=== PATIENT | female | born 1985 | race Caucasian/White ===

== ENCOUNTER → 2019-08-01 12:02 | Outpatient (BNVA) | payer BC, SELFPAY | PROVIDERS: Family Provider Nurse Practitioner Family; PCP Family Medicine; Visit Provider Nurse Practitioner Family | DX: J02.9 Acute pharyngitis, unspecified (principal); N30.01 Acute cystitis with hematuria | CPT/HCPCS: 36415; 81001; 87086 ==

== ENCOUNTER 2019-12-12 08:37 | Outpatient (CLI) | payer BC, SELFPAY ==
--- NOTE | 2019-12-12 08:45 | XR_ITS ---
WS: [id number] KUB, 12/12/2019 Clinical Data: Stone Comparison: KUB, 06/07/2019. Findings: The left renal calcifications are noted and have not changed. The right kidney shows multiple punctat e calcifications. The bladder is full. There is a large amount of fecal material in the colon. No abn ormal pelvic calcifications are noted. XR/XR KUB [id number] Impression: 1. 0.8 cm cluster of left renal calcifications unchanged. 2. Punctate right renal calcifications.
== END 2019-12-12 08:38 | disposition home or self-care (01) ==
PROVIDERS: Family Provider Nurse Practitioner Family; PCP Family Medicine; Visit Provider Urology
DX: N20.0 Calculus of kidney (principal)
CPT/HCPCS: 74018; 81001

== ENCOUNTER 2020-04-03 16:08 | Outpatient (CLI) | payer BC, SELFPAY ==
--- NOTE | 2020-04-03 | XR_ITS ---
WS: [id number] KUB, 04/03/2020 Clinical Data: POLYCYSTIC KIDNEY DISEASE Comparison: KUB, 12/12/2019. Findings: The bilateral renal calcifications remain unchanged. The left renal calcifications are clustered in m easure approximately 0.9 cm. The inferior aspects of both kidneys are obscured by overlying bowel gas . No pelvic calcifications are seen. There is no evidence of any bowel dilatation or obstruction. XR/XR KUB [id number] Impression: No change in bilateral renal calcifications.
[2020-04-03 16:51] LABS: Basophils % 0.4 %; Hematocrit 43.5 % (37.0-47.0); Lymphocytes % 36.7 %; Mean Corpuscular HGB Conc 32.2 g/dL (30.0-36.0); Mean Corpuscular Hemoglobin 30.9 pg (28.0-34.0); Mean Platelet Volume 11.7 fL (7.4-10.4); Monocytes # 0.4 10^3/uL (0.2-0.9); Monocytes % 14.2 %; Neutrophils % 48.7 %; Nucleated Red Blood Cells % 0 %; Platelet Count 105 10^3/cmm (130-400); Red Blood Count 4.53 10^6/uL (4.1-5.3); White Blood Count 2.7 10^3/uL (4.0-10.0)
[2020-04-03 17:10] LABS: Bilirubin Urine Neg (Negative); Blood Urine Neg (Negative); Glucose Urine UA Norm (Normal); Ketones Urine Negative (Negative); Leukocyte Esterase Urine Negative (Negative); Nitrate Urine Negative (Negative); Protein Urine Neg (Negative); Specific Gravity, Urine 1.015 (1.005-1.030); Urine Appearance Clear (CLEAR); Urine Color Yellow (Yellow); Urobilinogen Urine Norm (Negative); pH Urine 7 (5-7)
[2020-04-03 17:18] LABS: Estmated Average Glucose 108; Hemoglobin A1C 5.4 % (4.0-6.0)
[2020-04-03 17:25] LABS: Alanine Aminotransferase 10 U/L (0-33); Albumin Level 4.7 g/dL (3.5-5.2); Alkaline Phosphatase 58 IU/L (35-105); Anion Gap 14.9 (5-19); Aspartate Amino Transferase 17 U/L (0-32); Blood Urea Nitrogen 17 mg/dL (6-20); Calcium 9.2 mg/dL (8.5-10.5); Carbon Dioxide 29 mmol/L (22-29); Chloride 102 mmol/L (98-107); Globulin 2.7 g/dL (1.3-4.6); Glomerular Filtration Rate 96.4 mL/min (90-130); Glucose 94 mg/dL (65-115); Iron 39 ug/dL (37-145); Osmolality Calculated 295 mOsm/kg (285-295); Potassium 3.9 mmol/L (3.5-5.1); Sodium 142 mmol/L (136-145); Thyroid Stimulating Hormone 1.98 uIU/mL (0.27-4.20); Total Bilirubin 0.3 mg/dL (0.15-1.2); Total Protein 7.4 g/dL (6.6-8.7); Uric Acid 4.2 mg/dL (2.4-5.7); Vitamin B12 419 pg/mL (232-1245)
[2020-04-03 17:42] LABS: Add Urine Culture? No; Bacteria Urine 1+ /hpf; Mucus Urine TRACE /hpf; RBC Urine 0-4 /hpf (0-2)
[2020-04-09 17:26] LABS: Methylmalonic Acid 171 nmol/L (87-318)
== END 2020-04-03 16:09 | disposition home or self-care (01) ==
LOC: LAB 16:13
PROVIDERS: PCP Family Medicine; Visit Provider Nurse Practitioner Family
DX: R68.89 Other general symptoms and signs (principal); R53.83 Other fatigue; D64.9 Anemia, unspecified; Z79.899 Other long term (current) drug therapy; E53.8 Deficiency of other specified B group vitamins; N30.01 Acute cystitis with hematuria; Q61.3 Polycystic kidney, unspecified
CPT/HCPCS: 74018; 80053; 80500; 81001; 82607; 83036; 83540; 83921; 84443; 84550; 85025; 86308

== ENCOUNTER → 2020-08-27 00:01 | Outpatient (BNVA) | payer OTHER, SELFPAY | PROVIDERS: PCP Family Medicine; Visit Provider Internal Medicine Nephrology | DX: Q61.2 Polycystic kidney, adult type (principal) | CPT/HCPCS: 80069; 82043; 82306; 85025 ==

== ENCOUNTER → 2021-05-01 11:32 | Outpatient (BNVA) | payer OTHER, SELFPAY | PROVIDERS: PCP Family Medicine; Visit Provider Nurse Practitioner Family | DX: N30.01 Acute cystitis with hematuria (principal) | CPT/HCPCS: 81003; 87086 ==

== ENCOUNTER 2021-05-06 14:05 | Outpatient (CLI) | payer OTHER, SELFPAY ==
--- NOTE | 2021-05-06 14:12 | XR_ITS ---
WS: [id number] KUB, AP view, 05/06/2021 Clinical Data: N20.0 - Calculus of kidney Comparison: KUB, 04/03/2020. Findings: The left renal calcification measures 1.0 cm and has not changed. The possible right renal calcificat ion is obscured by fecal material and gas. The bladder is full. No pelvic calcifications are seen. XR/XR KUB [id number] Impression: 1. No change in left renal calcification. 2. Right renal calcification may be obscured by fecal material.
== END 2021-05-06 14:06 | disposition home or self-care (01) ==
LOC: RAD 14:11
PROVIDERS: PCP Family Medicine; Visit Provider Nurse Practitioner Family
DX: N20.0 Calculus of kidney (principal); Q61.3 Polycystic kidney, unspecified
CPT/HCPCS: 74018; 82043; 88112

== ENCOUNTER → 2021-08-10 10:28 | Outpatient (BNVA) | payer OTHER, SELFPAY | PROVIDERS: PCP Family Medicine; Visit Provider Nurse Practitioner Family | DX: Q61.3 Polycystic kidney, unspecified (principal) | CPT/HCPCS: 80069 ==

== ENCOUNTER 2022-01-13 13:30 | Outpatient (CLI) | payer OTHER, SELFPAY ==
[2022-01-13 15:32] LABS: Cortisol Random 8.72 ug/dL (2.47-19.5)
[2022-01-13 15:56] LABS: 25 Hydroxy Vitamin D 76 ng/mL (30-100); Ferritin 26 ng/mL (15-150); Homocysteine 9.55; Iron 86 ug/dL (37-145); Thyroid Stimulating Hormone 0.88 uIU/mL (0.27-4.20); Vitamin B12 783 pg/mL (232-1245)
[2022-01-13 15:59] LABS: Folate Level 13.4 ng/mL (4.8-37.3)
[2022-01-13 16:48] LABS: Free T4 Free Thyroxine 1.11 ng/dL (0.82-1.77); T3 Free 2.6 PG/ML (2.0-4.4)
[2022-01-15 10:13] LABS: Dehydroepiandrosterone Sulfate 129 mcg/dL (19-237)
[2022-01-15 11:36] LABS: Anti-Double Strand DNA AB 10 IU/mL; Jo-1 Antibody <1.0 NEG AI (<1.0 NEG); SM/RNP Antibodies <1.0 NEG AI (<1.0 NEG); SS-B/LA IGG <1.0 NEG AI (<1.0 NEG); Scleroderma Ab(Scl-70) Ab <1.0 NEG AI (<1.0 NEG); Ss-A/Ro Igg <1.0 NEG AI (<1.0 NEG)
[2022-01-15 13:29] LABS: Thyroglobulin AB <1 IU/mL (< or = 1); Thyroid Peroxidase Antobodies 1 IU/mL (<9)
== END 2022-01-13 13:31 | disposition home or self-care (01) ==
LOC: LAB 13:38
PROVIDERS: PCP Family Medicine; Visit Provider Family Medicine
DX: E53.9 Vitamin B deficiency, unspecified (principal); E55.9 Vitamin D deficiency, unspecified; R53.83 Other fatigue; R10.84 Generalized abdominal pain; R14.0 Abdominal distension (gaseous); R14.1 Gas pain; Q61.3 Polycystic kidney, unspecified
CPT/HCPCS: 82306; 82533; 82607; 82627; 82728; 82746; 83090; 83540; 84432; 84439; 84443; 84481; 86140; 86225; 86235; 86376; 86800

== ENCOUNTER → 2022-05-13 14:43 | Outpatient (BNVA) | payer OTHER, SELFPAY | PROVIDERS: PCP Family Medicine; Visit Provider Nurse Practitioner | DX: R52 Pain, unspecified (principal); J10.1 Influenza due to other identified influenza virus with other respiratory manifestations; J11.1 Influenza due to unidentified influenza virus with other respiratory manifestations | CPT/HCPCS: 87400 ==

== ENCOUNTER → 2025-02-26 11:35 | Outpatient (BNVA) | payer OTHER, SELFPAY | PROVIDERS: PCP Nurse Practitioner Family; Visit Provider Nurse Practitioner Family | DX: N39.0 Urinary tract infection, site not specified (principal) | CPT/HCPCS: 81003; 87086 ==

== ENCOUNTER 2025-02-27 14:18 | Inpatient (IN) | payer OTHER, SELFPAY ==
[2025-02-27] VITALS (9 sets, daily range): BP systolic 93–123; BP diastolic 53–69; PULSE 59–105; RESP 16–20; TEMP 36.9–38.2; O2SAT 96–99; BMI 17.9
--- OUTSIDE RECORDS SUMMARY | 2025-02-27 14:24 | XMS_ITS | Encounter Summary ---
Author Organization [facility] Address [address] [place] [address] Care Team Providers Care Food And Beverage Assistant Name Role Phone Rene Worley MD Primary Care Provider [phone] [phone] Reason for Referral * Radiology Services (Routine) - Closed Specialty Diagnoses / Procedures Referred By Contac t Referred To Contact Radiology Diagnoses Breast pain Breast implant status Procedures MAMMO DIAG BILAT 3D RAMO W OR WO CAD CHG DIAGNOSTIC MAMMOGRAPHY COMPUTER-AIDED DETCJ BI CHG DIGITAL BREAST TOMOSYNTHESIS BILATERAL Rico Mckeon, ZONIA [address] [address] Phone: tel: fax: [facility] [address] [facility] [address] [place] [address] Phone: tel: fax: Referral ID Status Reason Start Date Expiration Date V isits Requested Visits Authorized [id number] Closed [facility] CTS to Schedule 08/01/2020 09/01/2021 1 1 MOTIVE STARTER 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 Encounter Details Date Type Department Care Team (Latest Contact Info) Description 08/01/2020 Ancillary Orders [facility] Pre-Registration [place] CALL TO MAKE APPOINTMENT ONLY [address] [place] [address] Rico Mckeon, HEARING HEALTH TECHNICIAN [address] [address] Breast pain; Breast implant status Social History Tobacco Use Types Packs/Day Years Used Date Smoking Tobacco: Never Smokeless Tobacco: Never Alcohol Use Standard Drinks/Week Comments No 0 (1 standard drink = 0.6 oz pur e alcohol) Comments No Sex and Gender Information Value Date Recorded Sex Assigned at Not on file 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 Gender Identity Not on file Sexual Orientation Not on file Occupation Industry Job Start Date Job End Date Not on file Not on file Not on file Not on file documented as of this encounter Plan of Treatment Not on file documented as of this encounter Results * MAMMO DIAG BILAT 3D RAMO W OR WO CAD (08/22/2020 10:42 AM AUTOMOTIVE STARTER REPAIRER) Anatomical Region Laterality Modality Breast Bilateral Mammography 08/22/2020 10:4 2 AM AUTOMOTIVE STARTER REPAIRER Narrative 08/22/2020 11:44 AM AUTOMOTIVE STARTER REPAIRER MAMMO DIAG BILAT 3D RAMO W OR WO CAD, MAMMO BREAST US BILAT LTD INDICATION FOR EXAMINATION: See Diagnosis COMPARISONS: Mammogram dated 04/26/2019, 02/22/2019, 08/06/2013. Ultrasound dated 12/20/2019, 04/26/2019, 02/22/2019. BREAST COMPOSITION: Extremely dense which lowers the sensitivity of mammography. FINDINGS: 3D MLO and CC digital tomosynthesis images were acquired and synthesized 2D images (C view) were generated. This digital mammogram was also analyzed by the Computer Aided Detection System CAD). The patient presents for evaluation of bilateral breast lumps. The overall fibroglandular pattern is stable. No suspicious mass, area of architectural distortion, or microcalcification is identified. The bilateral prepectoral implants appear stable. Bilateral breast ultrasounds were performed. Static sonographic images of each breast were obtained with Doppler interrogation. Right breast: At the palpable region of interest, 5:00 1 cm from the nipple, benign fibrocystic changes are noted including individual simple benign cysts and benign cyst clusters. These cysts measure up to 0.6 cm. The visualized implant demonstrates no gross abnormality. Left breast: At the palpable region of interest, 9:00 1 cm from the nipple, a benign cyst is present which measures 0.4 x 0.3 x 0.3 cm. An adjacent biopsy clip is present and appears unchanged in comparison to prior exams. The visualized implant demonstrates no gross abnormality; radial folds are noted. ASSESSMENT: Benign. No evidence of malignancy. BI-RADS 2. RECOMMENDATIONS: 1. Annual screening mammography. 2. Clinical correlation for bilateral breast lump/benign fibrocystic changes. The patient should follow up with her physician for further management. The patient was given a result/recommendation letter. [id number] Procedure Note Memo Martínez MD - 08/22/2020 MAMMO DIAG BILAT 3D RAMO W OR WO CAD, MAMMO BREAST US BILAT LTD INDICATION FOR EXAMINATION: See Diagnosis COMPARISONS: Mammogram dated 04/26/2019, 02/22/2019, 08/06/2013. Ultrasound dated 12/20/2019, 04/26/2019, 02/22/2019. BREAST COMPOSITION: Extremely dense which lowers the sensitivity of mammography. FINDINGS: 3D MLO and CC digital tomosynthesis images were acquired and synthesized 2D images (C view) were generated. This digital mammogram was also analyzed by the Computer Aided Detection System CAD). The patient presents for evaluation of bilateral breast lumps. The overall fibroglandular pattern is stable. No suspicious mass, area of architectural distortion, or microcalcification is identified. The bilateral prepectoral implants appear stable. Bilateral breast ultrasounds were performed. Static sonographic images of each breast were obtained with Doppler interrogation. Right breast: At the palpable region of interest, 5:00 1 cm from the nipple, benign fibrocystic changes are noted including individual simple benign cysts and benign cyst clusters. These cysts measure up to 0.6 cm. The visualized implant demonstrates no gross abnormality. Left breast: At the palpable region of interest, 9:00 1 cm from the nipple, a benign cyst is present which measures 0.4 x 0.3 x 0.3 cm. An adjacent biopsy clip is present and appears unchanged in comparison to prior exams. The visualized implant demonstrates no gross abnormality; radial folds are noted. ASSESSMENT: Benign. No evidence of malignancy. BI-RADS 2. RECOMMENDATIONS: 1. Annual screening mammography. 2. Clinical correlation for bilateral breast lump/benign fibrocystic changes. The patient should follow up with her physician for further management. The patient was given a result/recommendation letter. [id number] Dj Gross HEARING HEALTH TECHNICIAN MAMMO ORDERABLES Final Result documented in this encounter Visit Diagnoses Diagnosis Breast pain Mastodynia Breast implant status Breast pain Mastodynia Breast implant status documented in this encounter Care Teams Food And Beverage Assistant Relationship Specialty Start Date End Date Rene Worley MD [address] [phone] PCP - General Family Practice 05/31/16 documented as of this encounter
--- OUTSIDE RECORDS SUMMARY | 2025-02-27 14:24 | XMS_ITS | Encounter Summary ---
Author Organization [facility] Address [address] [place] [address] Care Team Providers Care Photographic Lithographer Name Role Phone Rene Worley MD Primary Care Provider [phone] [phone] Encounter Details Date Type Department Care Team (Late st Contact Info) Description 04/10/2019 Ancillary Orders [facility] [address] [facility] [address] [place] [address] Murtaza Mathew MD [address] [place] [address] Visit for screening mammogram Social History Tobacco Use Types Packs/Day Years Used Date Smoking Tobacco: Never Smokeless Tobacco: Never Alcohol Use Standard Drinks/Week Comments No 0 (1 standard drink = 0.6 oz pur e alcohol) Comments Unknown Sex and Gender Information Value Date Recorded Sex Assigned at Not on file Legal Sex Female 1:58 PM GENETICIST Gender Identity Not on file Sexual Orientation Not on file documented as of this encounter Plan of Treatment Not on file documented as of this encounter Results * MAMMO PRIOR STUDY (08/06/2013 2:10 PM GENETICIST) Narrative 04/10/2019 2:02 PM CDT This exam was auto finalized to allow images to be scanned to PACS. us Murtaza Mathew MD DIAGNOSTIC IMAGING ORDERABLES Final Result * MAMMO PRIOR STUDY (08/06/2013 2:05 PM GENETICIST) Narrative 04/10/2019 2:01 PM CDT This exam was auto finalized to allow images to be scanned to PACS. Murtaza Mathew MD DIAGNOSTIC IMAGING ORDERABLES Final Result documented in this encounter Visit Diagnoses Diagnosis Visit for screening mammogram Other screening mammogram Visit for screening mammogram Other screening mammogram Visit for screening mammogram Other screening mammogram documented in this encounter Care Teams Photographic Lithographer Relationship Specialty Start Date End Date Rene Worley MD [address] [facility] [address] [place] [phone] PCP - General Family Practice 05/31/16 documented as of this encounter
--- OUTSIDE RECORDS SUMMARY | 2025-02-27 14:24 | XMS_ITS | Encounter Summary ---
Author Organization [facility] Address [address] [place] [address] Care Team Providers Care Structural Biologist Name Role Phone Rene Worley MD Primary Care Provider [phone] [phone] Encounter Details Date Type Department Care Team (Latest Contact Info) Description 08/08/1998 Outpatient Historical [facility] Family Medicine- [address] [address] [place] [address] Marilu Lowery NO ADDRESS ON FILE Acute bronchitis (Primary Dx) Social History Tobacco Use Types Packs/Day Years Used Date Smoking Tobacco: Never Assessed Comments Unknown Sex and Gender Information Value Date Recorded Sex Assigned at Not on file 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 [address] [place] [address] PCP - General Family Practice 05/31/16 documented as of this encounter
--- OUTSIDE RECORDS SUMMARY | 2025-02-27 14:24 | XMS_ITS | Encounter Summary ---
Author Organization [facility] Address [address] [place] [address] Care Team Providers Care Quality Cloth Tester Name Role Phone Rene Worley MD Primary Care Provider [phone] [phone] Encounter Details Date Type Department Care Team (Latest Contact Info) Description 05/01/1999 Outpatient Historical [facility] Family Medicine [place] [address] [address] Marilu Lowery NO ADDRESS ON FILE Sprain and strain of unspecified site of elbow and forearm (Primary Dx) Social History Tobacco Use Types Packs/Day Years Used Date Smoking Tobacco: Never Assessed Comments Unknown Sex and Gender Information Value Date Recorded Sex Assigned at Not on file 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
--- OUTSIDE RECORDS SUMMARY | 2025-02-27 14:24 | XMS_ITS | Clinical Summary ---
Author Organization [facility] Address [address] [place] [address] Care Team Providers Care Dental Laboratory Assistant Name Role Phone Unavailable Primary Care Provider Unavailabl e Allergies Active Allergy Reactions Criticality Noted Date Comments Penicillins Rash Low 10/03/2023 Medications No known medications Active Problems Problem Noted Date Diagnosed Date Abnormal mammogram 10/03/2023 Assessment & Plan (10/03/2023 1:27 PM CDT): Re image in 6 months. If she changes her mind and decides she would like to have the site biopsied. Otherwise continue monthly self breast exams and yearly mammography screening. Social History Tobacco Use Types Packs/Day Years Used Date Smoking Tobacco: Never Smokeless Tobacco: Never Tobacco Cessation:Counseling Given: Not Answered Alcohol Use Standard Drinks/Week Comments Never 0 (1 standard drink = 0.6 oz pur e alcohol) PHQ-2 Answer Date Recorded PHQ-2 Score 0 10/03/2023 Comments Unknown Sex and Gender Information Value Date Recorded Sex Assigned at Not on file Legal Sex Female 12:48 PM CDT Gender Identity Not on file Sexual Orientation Not on file Last Filed Vital Signs Vital Sign Reading Time Taken Comments Blood Pressure - - Pulse - - Temperature - - Respiratory Rate - - Oxygen Saturation - - Inhaled Oxygen Concentration - - Weight 60.8 kg (134 lb) 10/03/2023 1:09 PM CDT Height 165.1 cm (5' 5 ) 10/03/2023 1:09 PM CDT Body Mass Index 22.3 10/03/2023 1:09 PM CDT Plan of Treatment Health Maintenance Due Date Last Done Comments Varicella Vaccines (1 of 2 - 13+ 2-dose series) 1999 Pap Smear 2007 Td, Tdap Vaccines Adult 02/09/2012 02/08/2002 HPV Vaccines (1 - 3-dose SCDM series) 2013 COVID-19 Vaccine ( season) 2024 02/12/2021, 01/22/2021 Annual Wellness 07/14/2024 07/14/2023, 12/02, 11/22/2019 Influenza Vaccination (#1) 2025 HIB Vaccines Completed 05/19/1988 IPV Vaccines Completed 12/13/1990, 02/01, 1986, Additional history exists MMR Vaccines Completed 12/13/1990, 12/17/1987 Hepatitis B Vaccines Completed 10/17/1998, 06/06/1998, 04/30/1998 Hepatitis A Vaccines Aged Out No long er eligible based on patient's age to complete this topic Meningococcal Vaccines Aged Out No lo nger eligible based on patient's age to complete this topic Pneumococcal Vaccine: Pediatrics (0 to 5 Years) and At-Risk Patients (6 to 49 Years) Aged Out No longer eligible based on patient's age to complete this topic RSV Mab Nirsevimab (Beyfortus) <20 months Aged Out No longer eligibl e based on patient's age to complete this topic Rotavirus Vaccines Aged Out No longer eligible based on patient's age to complete this topic [facility] [place] [place] [id number] [facility] [address] [place] [address]
--- OUTSIDE RECORDS SUMMARY | 2025-02-27 14:24 | XMS_ITS | Encounter Summary ---
Author Organization [facility] Address [address] [place] [address] Care Team Providers Care Digital Marketing Associate Name Role Phone Rene Worley MD Primary Care Provider [phone] [phone] Encounter Details Date Type Department Care Team (Latest Contact Info) Description 01/01/2004 Outpatient Historical [facility] [address] [place] [address] [facility] [address] [place] [address] Mazin Rogers MD NO ADDRESS ON FILE GANGLION OF TENDON (Primary Dx) Social History Tobacco Use Types Packs/Day Years Used Date Smoking Tobacco: Never Assessed Comments Unknown Sex and Gender Information Value Date Recorded Sex Assigned at Not on file 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
--- OUTSIDE RECORDS SUMMARY | 2025-02-27 14:24 | XMS_ITS | Encounter Summary ---
Author Organization [facility] Address [address] [place] [address] Care Team Providers Care Digital Photo Printer Name Role Phone Rene Worley MD Primary Care Provider [phone] [phone] Encounter Details Date Type Department Care Team (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
--- OUTSIDE RECORDS SUMMARY | 2025-02-27 14:24 | XMS_ITS | Encounter Summary ---
Author Organization [facility] Address [address] [place] [address] Care Team Providers Care Maintenance Shop Clerk Name Role Phone Rene Worley MD Primary Care Provider [phone] [phone] Reason for Referral * Radiology Services (Routine) - Closed Specialty Diagnoses / Procedures Referred By Contac t Referred To Contact Radiology Diagnoses Breast pain Breast implant status Procedures MAMMO BREAST US BILAT LTD Rioc Mckeon, ZONIA [address] [place] [address] Phone: tel: fax: [facility] [address] [address] Phone: tel: fax: Referral ID Status Reason Start Date Expiration Date Visits Re quested Visits Authorized [id number] Closed 08/22/2020 09/22/2021 1 1 GAGE LOAN OFFICER ORIGINATOR Encounter Details Date Type Department Care Team (Latest Contact Info) Description 08/22/2020 Ancillary Orders [facility] Pre-Registration [place] CALL TO MAKE APPOINTMENT ONLY [address] [place] [address] Rico Mckeon, ZONIA [facility] [address] [address] Breast pain; Breast implant status Social History Tobacco Use Types Packs/Day Years Used Date Smoking Tobacco: Never Smokeless Tobacco: Never Alcohol Use Standard Drinks/Week Comments No 0 (1 standard drink = 0.6 oz pur e alcohol) Comments No Sex and Gender Information Value Date Recorded Sex Assigned at Not on file Legal Sex Female 1:58 PM MORTGAGE LOAN OFFICER ORIGINATOR Gender Identity Not on file Sexual Orientation Not on file Occupation Industry Job Start Date Job End Date Not on file Not on file Not on file Not on file COVID-19 Exposure Response Date Recorded In the last month, have you been in contact with someone who was confirmed or suspected to have Coronavirus / COVID-19? No / Unsure 08/22/2020 8:37 AM MORTGAGE LOAN OFFICER ORIGINATOR documented as of this encounter Plan of Treatment Not on file documented as of this encounter Results * MAMMO BREAST US [employer] (08/22/2020 11:30 AM MORTGAGE LOAN OFFICER ORIGINATOR) Anatomical Region Laterality Modality Bilateral Ultrasound 08/22/2020 10:4 9 AM MORTGAGE LOAN OFFICER ORIGINATOR Narrative 08/22/2020 11:44 AM MORTGAGE LOAN OFFICER ORIGINATOR MAMMO DIAG BILAT 3D RAMO W OR WO CAD, MAMMO BREAST US [employer] INDICATION FOR EXAMINATION: See Diagnosis COMPARISONS: Mammogram [...] The patient was given a result/recommendation letter. [id number] Procedure Note Memo Martínez MD - 08/22/2020 [...] The patient was given a result/recommendation letter. [id number] Dj Gross DIRECTOR INDUSTRIAL RELATIONS MAMMO ORDERABLES Final Result documented in this encounter Visit Diagnoses Diagnosis Breast pain Mastodynia Breast implant status Breast pain Mastodynia Breast implant status documented in this encounter Care Teams Maintenance Shop Clerk Relationship Specialty Start Date End Date Rene Worley MD [address] [phone] PCP - General Family Practice 05/31/16 documented as of this encounter
--- OUTSIDE RECORDS SUMMARY | 2025-02-27 14:24 | XMS_ITS | Encounter Summary ---
Author Organization [facility] Address [address] [place] [address] Care Team Providers Care Spot Checker Name Role Phone Rene Worley MD Primary Care Provider [phone] [phone] Reason for Referral * Radiology Services (Routine) - Closed Specialty Diagnoses / Procedures Referred By Contac t Referred To Contact Radiology Diagnoses Abnormal mammogram Procedures MAMMO BREAST US LEFT LTD Rene Worley MD [address] [address] Phone: tel: fax: [facility] [address] [address] Phone: tel: fax: Referral ID Status Reason Start Date Expiration Date V isits Requested Visits Authorized [id number] Closed [facility] TO SCHEDULE (SGF) 10/08/2019 11/07/2020 1 1 Encounter Details Date Type Department Care Team (Late st Contact Info) Description 10/08/2019 Ancillary Orders [facility] Pre-Registration [place] CALL TO MAKE APPOINTMENT ONLY [address] [place] [address] Rene Worley MD [address] [address] Abnormal mammogram Social History Tobacco Use Types Packs/Day Years Used Date Smoking Tobacco: Never Smokeless Tobacco: Never Alcohol Use Standard Drinks/Week Comments No 0 (1 standard drink = 0.6 oz pur e alcohol) Comments Unknown Sex and Gender Information Value Date Recorded Sex Assigned at Not on file 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 No / Unsure 10/08/2019 11:16 AM CDT documented as of this encounter Plan of Treatment Not on file documented as of this encounter Results * MAMMO BREAST US LEFT LTD (12/20/2019 9:11 AM CDT) Anatomical Region Laterality Modality Left Ultrasound 12/20/2019 8:57 AM CDT Narrative 12/20/2019 1:16 PM CDT MAMMO BREAST US LEFT LTD COMPARISON: Mammogram dated 04/26/2019, 02/22/2019, 08/06/2013. Ultrasound dated 02/22/2019, 04/26/2019. INDICATION FOR EXAMINATION: Status post benign left breast biopsy. TECHNIQUE: Static sonographic images of the left breast were obtained with Doppler interrogation. FINDINGS: The visualized implant demonstrates no gross defect. At 9:00 1 cm from the nipple a benign cyst is noted which measures 0.6 x 0.3 x 0.4 cm. Adjacent to this is the biopsy clip and remnants of the previously biopsied and involuted benign cyst. No suspicious abnormality is identified. ASSESSMENT: Benign. No evidence of malignancy. BI-RADS 2. RECOMMENDATIONS: Left breast ultrasound in one year. The patient was given a result/recommendation letter. [id number] Procedure Note Memo Martínez MD - 12/20/2019 MAMMO BREAST US LEFT LTD COMPARISON: Mammogram dated 04/26/2019, 02/22/2019, 08/06/2013. Ultrasound dated 02/22/2019, 04/26/2019. INDICATION FOR EXAMINATION: Status post benign left breast biopsy. TECHNIQUE: Static sonographic images of the left breast were obtained with Doppler interrogation. FINDINGS: The visualized implant demonstrates no gross defect. At 9:00 1 cm from the nipple a benign cyst is noted which measures 0.6 x 0.3 x 0.4 cm. Adjacent to this is the biopsy clip and remnants of the previously biopsied and involuted benign cyst. No suspicious abnormality is identified. ASSESSMENT: Benign. No evidence of malignancy. BI-RADS 2. RECOMMENDATIONS: Left breast ultrasound in one year. The patient was given a result/recommendation letter. [id number] Rene Worley MD MAMMO ORDERABLES Final Re sult documented in this encounter Visit Diagnoses Diagnosis Abnormal mammogram Abnormal mammogram, unspecified Abnormal mammogram Abnormal mammogram, unspecified documented in this encounter Care Teams Spot Checker Relationship Specialty Start Date End Date Rene Worley MD [address] [facility] [address] [place] [address] PCP - General Family Practice 05/31/16 documented as of this encounter
--- OUTSIDE RECORDS SUMMARY | 2025-02-27 14:24 | XMS_ITS | Encounter Summary ---
Author Organization [facility] Address [address] [place] [address] Care Team Providers Care Parks And Recreation Worker Name Role Phone Rene Worley MD Primary Care Provider +1 [phone] Encounter Details Date Type Department Care Team (Latest Contact Info) Description 12/31/2002 Outpatient Historical [facility] Family Medicine- [address] [place] [address] Syed Manriquez MD [address] 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
--- OUTSIDE RECORDS SUMMARY | 2025-02-27 14:24 | XMS_ITS | Encounter Summary ---
Author Organization [facility] Address [address] [place] [address] Care Team Providers Care Manager Of Program Name Role Phone Rene Worley MD Primary Care Provider [phone] [phone] Encounter Details Date Type Department Care Team (Latest Contact Info) Description 10/14/1999 Outpatient Historical [facility] Family Medicine- [address] [address] [place] [address] Montez Moise DO NO ADDRESS ON FILE Viral warts, unspecified (Primary Dx) Social History Tobacco Use Types Packs/Day Years Used Date Smoking Tobacco: Never Assessed Comments Unknown Sex and Gender Information Value Date Recorded Sex Assigned at Not on file Legal Sex Female 1:58 PM 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
--- OUTSIDE RECORDS SUMMARY | 2025-02-27 14:24 | XMS_ITS | Encounter Summary ---
Author Organization [facility] Address [address] [place] [address] Care Team Providers Care Swimming Pool Cleaner Name Role Phone Rene Worley MD Primary Care Provider [phone] [phone] Encounter Details Date Type Department Care Team (Latest Contact Info) Description 09/18/2002 Outpatient Historical [facility] Family Medicine- [address] [place] [address] Syed Manriquez MD [address] [facility] 200 [place] [address] URIN TRACT INFECTION NOS (Primary Dx) Social History Tobacco Use Types Packs/Day Years Used Date Smoking Tobacco: Never Assessed Comments Unknown Sex and Gender Information Value Date Recorded Sex Assigned at Not on file Legal Sex Female 1:58 PM 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
--- OUTSIDE RECORDS SUMMARY | 2025-02-27 14:24 | XMS_ITS | Encounter Summary ---
Author Organization [facility] Address [address] [place] [address] Care Team Providers Care Field Sales Executive Name Role Phone Rene Worley MD Primary Care Provider [phone] Encounter Details Date Type Department Care Team (Latest Contact Info) Description 02/17/2004 Outpatient Historical [facility] Orthoped[facility]- [address] [place] [address] Mazin Rogers MD NO ADDRESS ON FILE GANGLION OF JOINT (Primary Dx) Social History Tobacco Use Types Packs/Day Years Used Date Smoking Tobacco: Never Assessed Comments Unknown Sex and Gender Information Value Date Recorded Sex Assigned at Not on file Legal Sex Female 1:58 PM IN HOME CAREGIVER Gender Identity Not on file Sexual Orientation Not on file documented as of this encounter Plan of Treatment Not on file documented as of this encounter Visit Diagnoses Diagnosis Ganglion of joint- Primary documented in this encounter Care Teams Field Sales Executive Relationship Specialty Start Date End Date Rene Worley MD [address] [facility] 60 [place] [address] PCP - General Family Practice 05/31/16 documented as of this encounter
--- OUTSIDE RECORDS SUMMARY | 2025-02-27 14:24 | XMS_ITS | Encounter Summary ---
Author Organization [facility] Address [address] [place] [address] Care Team Providers Care Washer Operator Name Role Phone Rene Worley MD Primary Care Provider [phone] [phone] Encounter Details Date Type Department Care Team (Latest Contact Info) Description 09/06/2003 Outpatient Historical [facility] Family Medicine- [place] [address] [place] [address] Shanta Martel MD NO ADDRESS ON FILE ACUTE PHARYNGITIS (Primary Dx) Social History Tobacco Use Types Packs/Day Years Used Date Smoking Tobacco: Never Assessed Comments Unknown Sex and Gender Information Value Date Recorded Sex Assigned at Not on file 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
--- OUTSIDE RECORDS SUMMARY | 2025-02-27 14:24 | XMS_ITS | Encounter Summary ---
Author Organization [facility] Address [address] [place] [address] Care Team Providers Care Home Help Aide Name Role Phone Rene Worley MD Primary Care Provider [phone] [phone] Encounter Details Date Type Department Care Team (Latest Contact Info) Description 09/30/1999 Outpatient Historical [facility] Family Medicine- [address] [place] [address] Montez Moise, NO ADDRESS ON FILE Other acne (Primary Dx); Viral warts, unspecified Social History Tobacco Use Types Packs/Day Years Used Date Smoking Tobacco: Never Assessed Comments Unknown Sex and Gender Information Value Date Recorded Sex Assigned at Not on file Legal Sex Female 1:58 PM FRONT END 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
--- OUTSIDE RECORDS SUMMARY | 2025-02-27 14:24 | XMS_ITS | Encounter Summary ---
Author Organization [facility] Address [address] [place] [address] Phone Care Team Providers Care Signal And Communications Maintainer Name Role Phone Rene Worley MD Primary Care Provider [phone] Encounter Details Date Type Department Care Team (Late st Contact Info) Description 06/19/2019 Orders Only [facility] [address] [place] [address] Polycystic kidney, not otherwise specified Social History Tobacco Use Types Packs/Day Years Used Date Smoking Tobacco: Never Assessed Comments Unknown Sex and Gender Information Value Date Recorded Sex Assigned at Not on file Legal Sex Female 11:40 AM EST Gender Identity Not on file Sexual Orientation Not on file documented as of this encounter Plan of Treatment Not on file documented as of this encounter Visit Diagnoses Diagnosis Polycystic kidney, not otherwise specified documented in this encounter Care Teams Signal And Communications Maintainer Relationship Specialty Start Date End Date Rene Worley MD [address] [facility] [address] [place] [address] PCP - General Family Medicine 09/26/19 documented as of this encounter
--- OUTSIDE RECORDS SUMMARY | 2025-02-27 14:24 | XMS_ITS | Encounter Summary ---
Author Organization [facility] Address [address] [place] [address] Care Team Providers Care Pickle Maker Name Role Phone Rene Worley MD Primary Care Provider [phone] [phone] Encounter Details Date Type Department Care Team (Latest Contact Info) Description 08/12/2020 Ancillary Orders [facility] Pre-Registration [place] CALL TO MAKE APPOINTMENT ONLY [address] [place] [address] Rico Mckeon, RESIDENCE LEASING AGENT [address] [address] Breast implant status; Encounter for other screening for malignant neoplasm of breast Social History Tobacco Use Types Packs/Day Years Used Date Smoking Tobacco: Never Smokeless Tobacco: Never Alcohol Use Standard Drinks/Week Comments No 0 (1 standard drink = 0.6 oz pur e alcohol) Comments No Sex and Gender Information Value Date Recorded Sex Assigned at Not on file Legal Sex Female 1:58 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
--- OUTSIDE RECORDS SUMMARY | 2025-02-27 14:24 | XMS_ITS | Clinical Summary ---
Author Organization [facility] Address [address] [place] [address] Care Team Providers Care Application Support Developer Name Role Phone Rene Worley MD Primary Care Provider [phone] [phone] Allergies Active Allergy Reactions Criticality Noted Date Comments Penicillins Rash Low 06/15/2019 Medications No known medications Active Problems Problem Noted Date Diagnosed Date Polycystic kidney disease Fibrocystic breast changes of both breasts Family History Medical History Relation Name Comments Kidney Disease Brother Kidney Disease Maternal Grandmother Kidney Disease Maternal Uncle Kidney Disease Mother Polycystic ki dney Breast Cancer Neg Hx Relation Name Status Comments Brother Maternal Grandmother Maternal Uncle Mother Social History Tobacco Use Types Packs/Day Years Used Date Smoking Tobacco: Never Smokeless Tobacco: Never Alcohol Use Standard Drinks/Week Comments No 0 (1 standard drink = 0.6 oz pur e alcohol) Comments No Sex and Gender Information Value Date Recorded Sex Assigned at Not on file Legal Sex Female 1:58 PM WIND OPERATIONS SUPERVISOR Gender Identity Not on file Sexual Orientation Not on file Occupation Industry Job Start Date Job End Date Not on file Not on file Not on file Not on file Last Filed Vital Signs Vital Sign Reading Time Taken Comments Blood Pressure 114/68 12/17/2020 3:03 PM CDT Pulse 82 06/15/2019 3:42 PM WIND OPERATIONS SUPERVISOR Temperature 37.3 C (99.2 F) 06/15/2019 3:42 PM WIND OPERATIONS SUPERVISOR Respiratory Rate 14 04/13/2019 2:09 PM CDT Oxygen Saturation 99% 06/15/2019 3:42 PM WIND OPERATIONS SUPERVISOR Inhaled Oxygen Concentration - - Weight 62.8 kg (138 lb 6.4 oz) 12/17/2020 3:03 P M CDT Height 165.1 cm (5' 5 ) 11/22/2019 8:38 AM CDT Body Mass Index 23.03 11/22/2019 8:38 AM CDT Plan of Treatment Health Maintenance Due Date Last Done Comments DTAP/TDAP/TD VACCINES (1 - Tdap) 2005 HEPATITIS B VACCINES (1 of 3 - 19+ 3-dose series) 2005 HPV VACCINES (1 - 3-dose SCDM series) 2013 PAP SMEAR 11/21/2022 11/22/2019, 11/22/2019 COVID-19 Vaccine (3 - 2023- season) 03/04/202406/2021, 01/22/2021 Preventative Visit- Commercial 07/04/2024 12/17/2020 , 11/22/2019 CERVICAL CANCER SCREENING 11/21/2024 HPV/Cotest (21-29) 11/21/2024 11/22/2019 HPV/Cotest (30-65) 11/21/2024 11/22/2019 INFLUENZA VACCINE (#1) 2025 04/13/2019 Procedures Procedure Name Priority Date/Time Associated Diagnosis Comments CERV/VAG CYTO SCREEN PAP W/HPV Routine 11/22/2019 9:23 AM CDT Screening for cervical cancer from Last 3 Months or Most Recently Relevant to Health Maintenance Results * CERV/VAG CYTO SCREEN PAP W/HPV (11/22/2019 9:23 AM CDT) PAP INTERP See Separate Results 11/29/2019 9:36 AM CDT [facility] Genital SWAB OF ENDOCERVIX / Unknown Collection / Unknown 11/22/2019 9:23 AM CDT 11/23/2019 11:49 AM CDT us Lynn Andrade MD PATHOLOGY/CYTOLOGY ORD ERABLES Final Result [facility] CLIA# [id number] [address] [place] [id number] from Last 3 Months or Most Recently Relevant to Health Maintenance Insurance [facility] Care Teams Application Support Developer Relationship Specialty Start Date End Date Rene Worley MD [address] [facility] [address] [place] [address] PCP - General Family Practice 05/31/16
--- OUTSIDE RECORDS SUMMARY | 2025-02-27 14:24 | XMS_ITS | Encounter Summary ---
Author Organization [facility] Address [address] [place] [address] Care Team Providers Care Level Vial Grinder Name Role Phone Rene Worley MD Primary Care Provider [phone] Encounter Details Date Type Department Care Team (Late st Contact Info) Description 02/19/2025 External Device Data STL ABSTRACTION Provider, Abstract NO ADDRESS ON FILE Social History Tobacco Use Types Packs/Day Years Used Date Smoking Tobacco: Never Smokeless Tobacco: Never Alcohol Use Standard Drinks/Week Comments No 0 (1 standard drink = 0.6 oz pur e alcohol) Comments No Sex and Gender Information Value Date Recorded Sex Assigned at Not on file Legal Sex Female 7:05 AM GLIDING PILOT 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
--- OUTSIDE RECORDS SUMMARY | 2025-02-27 14:24 | XMS_ITS | Clinical Summary ---
Author Organization [facility] Address [address] [place] [address] Care Team Providers Care Platform Man Name Role Phone Rene Worley MD Primary Care Provider [phone] Allergies Active Allergy Reactions Criticality Noted Date Comments Penicillins Rash Low 06/15/2019 Medications Cholecalciferol (D3 2000 PO) Take by mouth 1 (one) time each day Active cyanocobalamin (VITAMIN B-12) 100 MCG tablet Take 50 mcg by mouth 1 (one) time each day Active Active Problems Problem Noted Date Diagnosed Date Vitamin D deficiency 09/02/2020 Polycystic kidney, unspecified type Immunizations Immunization Administration Dates Next Due Pfizer SARS-COV-2 02/12/2021,01/22/2021 Family History Medical History Relation Comments Polycystic kidney disease Brother No Known Problems Father Polycystic kidney disease Maternal Grandmother Polycystic kidney disease Mother Polycystic kidney disease Mother's Brother Polycystic kidney disease Mother's Sister Relation Status Comments Brother Alive Father Alive Maternal Grandmother Mother Alive Mother's Brother Mother's Sister Social History Tobacco Use Types Packs/Day Years Used Date Smoking Tobacco: Never Smokeless Tobacco: Never Alcohol Use Standard Drinks/Week Comments Never 0 (1 standard drink = 0.6 oz pur e alcohol) AUDIT-C Answer Date Recorded Q1: How often do you have a drink containing alc ohol? Never 09/26/2019 Average Number of Drinks Not on file 020 Frequency of Binge Drinking Not on file 09/02 Comments Unknown Sex and Gender Information Value Date Recorded Sex Assigned at Not on file Legal Sex Female 11:40 AM EST Gender Identity Not on file Sexual Orientation Not on file Last Filed Vital Signs Vital Sign Reading Time Taken Comments Blood Pressure 128/70 08/27/2024 7:25 AM SOLARIS ADMINISTRATOR Pulse 69 08/27/2024 7:25 AM SOLARIS ADMINISTRATOR Temperature 36.8 C (98.3 F) 09/02/2020 2:04 PM SOLARIS ADMINISTRATOR Respiratory Rate - - Oxygen Saturation 97% 08/27/2024 7:25 AM SOLARIS ADMINISTRATOR Inhaled Oxygen Concentration - - Weight 58.3 kg (128 lb 9.6 oz) 08/27/2024 7:25 A M SOLARIS ADMINISTRATOR Height 165.1 cm (5' 5 ) 08/27/2024 7:25 AM SOLARIS ADMINISTRATOR Body Mass Index 21.4 08/27/2024 7:25 AM SOLARIS ADMINISTRATOR Plan of Treatment Health Maintenance Due Date Last Done Comments Hepatitis B Vaccine (1 of 3 - 19+ 3-dose series) 06/17 Pneumococcal Vaccine: Peds ( 0 to 5 Years) and At-Risk Patients (6 to 49 Years) (1 of 2 - PCV) 2005 Influenza Vaccine (#1) 2025 Insurance [facility] ([id number]) Care Teams Platform Man Relationship Specialty Start Date End Date Rene Worley MD [address] [facility] [address] [place] [address] PCP - General Family Medicine 09/26/19
--- OUTSIDE RECORDS SUMMARY | 2025-02-27 14:24 | XMS_ITS | Encounter Summary ---
Author Organization [facility] Address [address] [place] [address] Care Team Providers Care Microsystems Engineer Name Role Phone Rene Worley MD Primary Care Provider [phone] Encounter Details Date Type Department Care Team (Late st Contact Info) Description 05/21/2002 Outpatient Historical [facility] Dermatology- [address] [place] [address] Jesús Amaya MD [address] [place] [phone] VIRAL WARTS NOS (Primary Dx); ACNE NEC Social History Tobacco Use Types Packs/Day Years Used Date Smoking Tobacco: Never Assessed Comments Unknown Sex and Gender Information Value Date Recorded Sex Assigned at Not on file Legal Sex Female 1:58 PM PREVENTIVE MAINTENANCE COORDINATOR Gender Identity Not on file Sexual Orientation Not on file documented as of this encounter Plan of Treatment Not on file documented as of this encounter Visit Diagnoses Diagnosis Viral warts, unspecified- Primary Other acne documented in this encounter Care Teams Microsystems Engineer Relationship Specialty Start Date End Date Rene Worley MD [address] [facility] [address] [place] [address] PCP - General Family Practice 05/31/16 documented as of this encounter
--- OUTSIDE RECORDS SUMMARY | 2025-02-27 14:24 | XMS_ITS | Encounter Summary ---
Author Organization [facility] Address [address] [place] [address] Care Team Providers Care Fine Grade Operator Name Role Phone Rene Worley MD Primary Care Provider +1 [phone] Reason for Referral * Radiology Services (Routine) - Closed Specialty Diagnoses / Procedures Referred By Contac t Referred To Contact Radiology Diagnoses Abnormal mammogram Procedures MAMMO BREAST US BIOPSY LEFT MAMMO BREAST US ASPIRATION LEFT Rene Worley MD [address] [address] Phone: tel: fax: [facility] [address] [address] Phone: tel: fax: Referral ID Status Reason Start Date Expiration Date V isits Requested Visits Authorized [id number] Closed SGF MC TO SCHEDULE (SGF) 04/19/2019 05/19/2020 1 1 Encounter Details Date Type Department Care Team (Late st Contact Info) Description 04/26/2019 Ancillary Orders [facility] [address] [address] Rene Worley MD [address] [address] Abnormal mammogram Social History Tobacco Use Types Packs/Day Years Used Date Smoking Tobacco: Never Smokeless Tobacco: Never Alcohol Use Standard Drinks/Week Comments No 0 (1 standard drink = 0.6 oz pur e alcohol) Comments Unknown Sex and Gender Information Value Date Recorded Sex Assigned at Not on file 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 Left breast, 9 o'clock - 1 cm from nipple, ultrasound-guided biopsy - minute fragments of cyst wall with adjacent parenchyma with altered architecture and focal proliferative change Although no definitive atypia or malignancy is identified in the biopsy, continued observation of the area is recommended given the histologic changes and limited sample size This is a benign and concordant result. RECOMMENDATION: Recommend left breast diagnostic ultrasound in six months to ensure stability. [id number] Impressions 04/26/2019 10:54 AM CDT : Technically successful ultrasound-guided biopsy of the breast after incomplete resolution upon attempted aspiration. Final pathology is pending. [id number] Narrative 04/26/2019 10:54 AM CDT EXAM: MAMMO BREAST US BIOPSY LEFT, MAMMO POST US/STEREO GUIDED PROCEDURE LT, 04/26/2019 8:37 AM PRE-PROCEDURE DIAGNOSIS: Indeterminate left breast mass, aspiration unsuccessful POST-PROCEDURE DIAGNOSIS: Same, possible complicated cyst COMPARISON: 02/22/2019 FINDINGS: Consent: Following a thorough discussion of the risks, benefits and alternatives of the procedure written informed consent was obtained. Time out was performed. Position: The patient was placed in a supine position on the US table and a preliminary scan was obtained. The abnormality was again identified in the left breast. Preparation: The patient's skin was cleansed, and the skin and subcutaneous tissues anesthetized with 10 mL of 1% lidocaine solution. A portion of the cyst within the 9:00 axis of the left breast, 1 cm from the nipple aspirated. There was, however residual abnormal appearing tissue. Procedure: A coaxial needle was inserted into the skin. A 14-gauge Bard needle was placed through the coaxial needle into the biopsy site. Multiple core samples were obtained. A coil-shaped biopsy clip was positioned into the site. The biopsy device was removed and handheld pressure was applied. The estimated blood loss is minimal. The patient tolerated the procedure well without evidence of immediate complications. Post-procedure: A left digital mammogram in the ML and CC projections was submitted for review. This demonstrates biopsy clip in appropriate position. Procedure Note Ella Matrínez MD - 04/26/2019 EXAM: MAMMO BREAST US BIOPSY LEFT, MAMMO POST US/STEREO GUIDED PROCEDURE LT, 04/26/2019 8:37 AM PRE-PROCEDURE DIAGNOSIS: Indeterminate left breast mass, aspiration unsuccessful POST-PROCEDURE DIAGNOSIS: Same, possible complicated cyst COMPARISON: 02/22/2019 FINDINGS: Consent: Following a thorough discussion of the risks, benefits and alternatives of the procedure written informed consent was obtained. Time out was performed. Position: The patient was placed in a supine position on the US table and a preliminary scan was obtained. The abnormality was again identified in the left breast. Preparation: The patient's skin was cleansed, and the skin and subcutaneous tissues anesthetized with 10 mL of 1% lidocaine solution. A portion of the cyst within the 9:00 axis of the left breast, 1 cm from the nipple aspirated. There was, however residual abnormal appearing tissue. Procedure: A coaxial needle was inserted into the skin. A 14-gauge Bard needle was placed through the coaxial needle into the biopsy site. Multiple core samples were obtained. A coil-shaped biopsy clip was positioned into the site. The biopsy device was removed and handheld pressure was applied. The estimated blood loss is minimal. The patient tolerated the procedure well without evidence of immediate complications. Post-procedure: A left digital mammogram in the ML and CC projections was submitted for review. This demonstrates biopsy clip in appropriate position. IMPRESSION: Technically successful ultrasound-guided biopsy of the breast afterincomplete resolution upon attempted aspiration. Final pathology is pending. [id number] Rene Worley MD MAMMO ORDERABLES Edited R esult - Final documented in this encounter Visit Diagnoses Diagnosis Abnormal mammogram Abnormal mammogram, unspecified Abnormal mammogram Abnormal mammogram, unspecified documented in this encounter Care Teams Fine Grade Operator Relationship Specialty Start Date End Date Rene Worley MD [address] [facility] [address] [place] [phone] PCP - General Family Practice 05/31/16 documented as of this encounter
--- OUTSIDE RECORDS SUMMARY | 2025-02-27 14:24 | XMS_ITS | Encounter Summary ---
Author Organization [facility] Address [address] [place] [address] Care Team Providers Care District Sales Coordinator Name Role Phone Rene Worley MD Primary Care Provider [phone] [phone] Encounter Details Date Type Department Care Team (Latest Contact Info) Description 12/16/2003 Outpatient Historical [facility] Family Medicine- [address] [place] [address] Shanta Martel MD NO ADDRESS ON FILE GANGLION NOS (Primary Dx) Social History Tobacco Use Types Packs/Day Years Used Date Smoking Tobacco: Never Assessed Comments Unknown Sex and Gender Information Value Date Recorded Sex Assigned at Not on file 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
--- OUTSIDE RECORDS SUMMARY | 2025-02-27 14:24 | XMS_ITS | Encounter Summary ---
Author Organization [facility] Address [address] [place] [address] Care Team Providers Care Giving Officer Name Role Phone Rene Worley MD Primary Care Provider [phone] [phone] Encounter Details Date Type Department Care Team (Latest Contact Info) Description 03/22/2002 Outpatient Historical [facility] Family Medicine [address] [phone] Shanta Martel MD NO ADDRESS ON FILE CONTUSION OF CHEST WALL (Primary Dx) Social History Tobacco Use Types Packs/Day Years Used Date Smoking Tobacco: Never Assessed Comments Unknown Sex and Gender Information Value Date Recorded Sex Assigned at Not on file 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
--- OUTSIDE RECORDS SUMMARY | 2025-02-27 14:24 | XMS_ITS | Encounter Summary ---
Author Organization [facility] Address [address] [place] [address] Care Team Providers Care Return Checker Name Role Phone Rene Worley MD Primary Care Provider [phone] [phone] Encounter Details Date Type Department Care Team (Latest Contact Info) Description 01/13/2004 Outpatient Historical [facility] Orthopedics- 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
--- OUTSIDE RECORDS SUMMARY | 2025-02-27 14:24 | XMS_ITS | Encounter Summary ---
Author Organization [facility] Address [address] [place] [address] Care Team Providers Care Supervisor Cell Efficiency Name Role Phone Rene Worley MD Primary Care Provider [phone] [phone] Reason for Referral * Radiology Services (Routine) - Closed Specialty Diagnoses / Procedures Referred By Contac t Referred To Contact Radiology Diagnoses Breast mass, left Procedures MAMMO BREAST US LEFT LTD Rico Mckeon, TECHNICAL CUSTOMER SUPPORT SPECIALIST [address] [place] [address] Phone: tel: fax: [address] [address] Phone: tel: fax: Referral ID Status Reason Start Date Expiration Date Visits Requested Visits Authorized [id number] Closed Performing Department To Schedule (SGF) 02/12/2019 03/14/2020 1 1 * Radiology Services (Routine) - Closed Specialty Diagnoses / Procedures Referred By Contac t Referred To Contact Radiology Diagnoses Breast mass, left Procedures MAMMO DIAGNOSTIC BILATERAL W OR WO CAD Rioc Mckeon, TECHNICAL CUSTOMER SUPPORT SPECIALIST [address] [place] [address] Phone: tel: fax: [facility] [address] [place] [address] Phone: tel: fax: Referral ID Status Reason Start Date Expiration Date V isits Requested Visits Authorized [id number] Closed [facility] [place]EDU[place] 02/12/2019 03/14/2020 1 1 Encounter Details Date Type Department Care Team ([facility] Contact Info) Description 02/12/2019 Ancillary Orders [facility] Pre-Registration [place] CALL TO MAKE APPOINTMENT ONLY [address] [place] [address] Rico Mckeon, ZONIA [address] [facility] [address] [place] [address] Breast mass, left Social History Tobacco Use Types Packs/Day Years Used Date Smoking Tobacco: Never Smokeless Tobacco: Never Alcohol Use Standard Drinks/Week Comments No 0 (1 standard drink = 0.6 oz pur e alcohol) Comments Unknown Sex and Gender Information Value Date Recorded Sex Assigned at Not on file 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 This was prior to the implant placement. The exam is difficult to use for comparison as the appearance of the breast was much different. It appears that the patient has lost a great deal of weight. There are also technical differences due to the presence of the implants currently. I would recommend ultrasound-guided attempted aspiration of the two probable complicated cysts at the 9:00 position on the left. IMPRESSION: I would recommend left ultrasound-guided attempted aspiration of the two probable complicated cysts at the 9:00 position on the left. [id number] Narrative 02/22/2019 2:53 PM CDT Bilateral Diagnostic Mammogram And Left Breast Ultrasound, 02/22/2019: History: The patient is 33 years of age and she is here with a lump she feels at 9:00 anteriorly on the left. I did review the office visit note of 01/23/2019 indicating that a small mass was confirmed near the nipple at 9:00 on the left. No diagram was submitted. The patient has no family history of breast carcinoma. The patient has outside prior exams from [place] which are not yet here for comparison but they have been requested today. Bilateral craniocaudal and oblique views are obtained with standard technique and also implant displaced technique. Bilateral medial to lateral implant displaced views are obtained. Bilateral implants are noted. The breast tissue is extremely dense. No suspicious masses or calcifications are seen on either side. There is no mammographic abnormality to correspond with the palpable lump on the left. Left breast ultrasound: Prior to the ultrasound I did a limited exam. I did feel a small pea-sized nodule where the patient pointed. The ultrasound shows two probable complicated cysts at the 9:00 position 1 cm from the nipple. The round one shows what appears to be a fluid - fluid level and measures 4 x 3 x 4 mm. A more elongated probable cyst is seen adjacent to that measuring 2 x 4 x 3 mm. In the oblique orientation the area is measuring 7 mm. A tiny 5 mm cyst is also identified. This mammogram was also analyzed by the Computer Aided Detection System (CAD), [employer], Version 8.3. The patient was given a verbal and written report. She was told that this is an incomplete report until the outside exams are received. A final report will be issued at that time. Impression: I would recommend clinical correlation and follow-up with the patient's physician. I would recommend that the outside prior exams be obtained for comparison. If those do not become available then I would recommend ultrasound-guided aspiration of the possible complicated cysts seen sonographically on the left. [id number] us Dj Gross TECHNICAL CUSTOMER SUPPORT SPECIALIST MAMMO ORDERABLES Edited Result - Final * (ABNORMAL) MAMMO DIAGNOSTIC BILATERAL W OR WO CAD (02/22/2019 10:48 AM CDT) Anatomical Region Laterality Modality Breast Bilateral Mammography 02/22/2019 10:4 8 AM CDT Addenda Addendum by Elizabeth Willingham MD on 04/12/2019 1:27 PM CDT Addendum dictated 04/11/2019 We received one outside prior exam for comparison dated 08/06/2013. This was prior to the implant placement. The exam is difficult to use for comparison as the appearance of the breast was much different. It appears that the patient has lost a great deal of weight. There are also technical differences due to the presence of the implants currently. I would recommend ultrasound-guided attempted aspiration of the two probable complicated cysts at the 9:00 position on the left. IMPRESSION: I would recommend left ultrasound-guided attempted aspiration of the two probable complicated cysts at the 9:00 position on the left. [id number] Narrative 02/22/2019 2:53 PM CDT Bilateral Diagnostic Mammogram And Left Breast Ultrasound, 02/22/2019: History: The patient is 33 years of age and she is here with a lump she feels at 9:00 anteriorly on the left. I did review the office visit note of 01/23/2019 indicating that a small mass was confirmed near the nipple at 9:00 on the left. No diagram was submitted. The patient has no family history of breast carcinoma. The patient has outside prior exams from [place] which are not yet here for comparison but they have been requested today. Bilateral craniocaudal and oblique views are obtained with standard technique and also implant displaced technique. Bilateral medial to lateral implant displaced views are obtained. Bilateral implants are noted. The breast tissue is extremely dense. No suspicious masses or calcifications are seen on either side. There is no mammographic abnormality to correspond with the palpable lump on the left. Left breast ultrasound: Prior to the ultrasound I did a limited exam. I did feel a small pea-sized nodule where the patient pointed. The ultrasound shows two probable complicated cysts at the 9:00 position 1 cm from the nipple. The round one shows what appears to be a fluid - fluid level and measures 4 x 3 x 4 mm. A more elongated probable cyst is seen adjacent to that measuring 2 x 4 x 3 mm. In the oblique orientation the area is measuring 7 mm. A tiny 5 mm cyst is also identified. This mammogram was also analyzed by the Computer Aided Detection System (CAD), [employer], Version 8.3. The patient was given a verbal and written report. She was told that this is an incomplete report until the outside exams are received. A final report will be issued at that time. Impression: I would recommend clinical correlation and follow-up with the patient's physician. I would recommend that the outside prior exams be obtained for comparison. If those do not become available then I would recommend ultrasound-guided aspiration of the possible complicated cysts seen sonographically on the left. [id number] us Dj Gross TECHNICAL CUSTOMER SUPPORT SPECIALIST MAMMO ORDERABLES Edited Result - Final documented in this encounter Visit Diagnoses Diagnosis Breast mass, left Lump or mass in breast Breast mass, left Lump or mass in breast Breast mass, left Lump or mass in breast documented in this encounter Care Teams Supervisor Cell Efficiency Relationship Specialty Start Date End Date Rene Worley MD [address] [phone] PCP - General Family Practice 05/31/16 documented as of this encounter
--- OUTSIDE RECORDS SUMMARY | 2025-02-27 14:24 | XMS_ITS | Encounter Summary ---
Author Organization [facility] Address [address] [place] [address] Care Team Providers Care Preparation Supervisor Freezing Name Role Phone Rene Worley MD Primary Care Provider [phone] [phone] Reason for Referral * Radiology Services (Routine) - Closed Specialty Diagnoses / Procedures Referred By Contac t Referred To Contact Radiology Diagnoses Abnormal mammogram Procedures MAMMO POST US/STEREO GUIDED PROCEDURE LT Rene Worley MD [address] [address] Phone: tel: fax: [facility] [address] [address] Phone: tel: fax: Referral ID Status Reason Start Date Expiration Date Visits Requested Visits Authorized [id number] Closed Ordering Department To Schedule 04/19/2019 05/19/2020 1 1 Encounter Details Date Type Department Care Team (Late st Contact Info) Description 04/19/2019 Ancillary Orders [facility] [address] [address] Rene Worley MD [address] [address] Abnormal mammogram Social History Tobacco Use Types Packs/Day Years Used Date Smoking Tobacco: Never Smokeless Tobacco: Never Alcohol Use Standard Drinks/Week Comments No 0 (1 standard drink = 0.6 oz pur e alcohol) Comments Unknown Sex and Gender Information Value Date Recorded Sex Assigned at Not on file 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 [id number] Impressions 04/26/2019 10:54 AM CDT : Technically successful ultrasound-guided biopsy of the breast after incomplete resolution upon attempted aspiration. Final pathology is pending. [id number] Narrative 04/26/2019 10:54 AM CDT EXAM: MAMMO [...] clip in appropriate position. Procedure Note Ella Martínez MD - 04/26/2019 EXAM: MAMMO BREAST US [...] upon attempted aspiration. Final pathology is pending. [id number] Rene Worley MD MAMMO ORDERABLES Edited R esult - Final documented in this encounter Visit Diagnoses Diagnosis Abnormal mammogram Abnormal mammogram, unspecified Abnormal mammogram Abnormal mammogram, unspecified documented in this encounter Care Teams Preparation Supervisor Freezing Relationship Specialty Start Date End Date Rene Worley MD [address] [phone] PCP - General Family Practice 05/31/16 documented as of this encounter
--- OUTSIDE RECORDS SUMMARY | 2025-02-27 14:24 | XMS_ITS | Encounter Summary ---
Author Organization [facility] Address [address] [place] [address] Care Team Providers Care Veneer Glue Spreader Name Role Phone Rene Worley MD Primary Care Provider [phone] [phone] Encounter Details Date Type Department Care Team (Latest Contact Info) Description 10/21/2003 Outpatient Historical [facility] Family Medicine- [place] [address] [place] [address] Shanta Martel MD NO ADDRESS ON FILE STREP SORE THROAT (Primary Dx) Social History Tobacco Use Types Packs/Day Years Used Date Smoking Tobacco: Never Assessed Comments Unknown Sex and Gender Information Value Date Recorded Sex Assigned at Not on file 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
--- OUTSIDE RECORDS SUMMARY | 2025-02-27 14:24 | XMS_ITS | Clinical Summary ---
Author Organization [facility] tone Address [address] [place] [address] Care Team Providers Care C.O.D. Clerk Name Role Phone Rene Worley MD Primary Care Provider [phone] Allergies Active Allergy Reactions Criticality Noted Date Comments Penicillins Rash Low 06/15/2019 Medications No known medications Active Problems Problem Noted Date Diagnosed Date Lymphadenopathy 07/21/2016 Rash 07/21/2016 Fatigue 07/21/2016 Thrombocytopenia 07/21/2016 Polycystic kidney disease Fibrocystic breast changes of both breasts Encounters Date Type Department Care Team Description 02/19/2025 External Device Data ST[facility] ABSTRACTION Provider, Abstract 02/19/2025 External Device Data [facility] ABSTRACTION Provider, Abstract 02/05/2025 External Device Data [facility] ABSTRACTION Provider, Abstract 01/16/2025 External Device Data [facility] ABSTRACTION Provider, Abstract 01/15/2025 External Device Data [facility] ABSTRACTION Provider, Abstract 12/25/2024 External Device Data [facility] ABSTRACTION Provider, Abstract 12/18/2024 External Device Data ST[facility] ABSTRACTION Provider, Abstract from Last 3 Months Immunizations Immunization Administration Dates Next Due (PFIZER)(12 YR UP) COVID-19 VACCINE - EMERGENCY USE AUTHORIZATION, MRNA, [id number](PF) 30 MCG/0.3 ML IM SUSP 02/12/2021,01/22/2021 Family History Medical History Relation Name Comments Kidney Disease Brother Kidney Disease Maternal Grandmother Kidney Disease Maternal Uncle Kidney Disease Mother Polycystic ki dney Breast Cancer Neg Hx Ovarian Cancer Neg Hx Uterine or Endometrial Cance r, Not Including Cervical Neg Hx Relation Name Status Comments Brother Maternal Grandmother Maternal Uncle Mother Social History Tobacco Use Types Packs/Day Years Used Date Smoking Tobacco: Never Smokeless Tobacco: Never Alcohol Use Standard Drinks/Week Comments No 0 (1 standard drink = 0.6 oz pur e alcohol) Comments No Sex and Gender Information Value Date Recorded Sex Assigned at Not on file Legal Sex Female 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 Gender Identity Not on file Sexual Orientation Not on file Last Filed Vital Signs Vital Sign Reading Time Taken Comments Blood Pressure 114/68 12/17/2020 3:03 PM CDT Pulse 82 06/15/2019 3:42 PM DATA VISUALIZATION DEVELOPER Temperature 37.3 C (99.2 F) 06/15/2019 3:42 PM DATA VISUALIZATION DEVELOPER Respiratory Rate 14 04/13/2019 2:09 PM CDT Oxygen Saturation 100% 07/21/2016 10:06 AM DATA VISUALIZATION DEVELOPER Inhaled Oxygen Concentration - - Weight 62.8 kg (138 lb 6.4 oz) 12/17/2020 3:03 P M CDT Height 165.1 cm (5' 5 ) 11/22/2019 8:38 AM CDT Body Mass Index 23.03 11/22/2019 8:38 AM CDT Plan of Treatment Health Maintenance Due Date Last Done Comments DTAP/TDAP/TD VACCINES (6 - Tdap) 02/09/2002 02/08/2002, 12/13/1990, 02/18/1988, Additional history exists HPV VACCINES (1 - 3-dose SCD M series) 2013 PAP SMEAR 11/21/2022 11/22/2019, 11/02, 11/22/2019, Additional history exists COVID-19 Vaccine (3 - 2023-2 5 season) 2024 02/12/2021, 01/22/2021 CERVICAL CANCER SCREENING 11/21/2024 HPV/Cotest (21-29) 11/21/2024 11/22/2019, 11/22/2019 HPV/Cotest (30-65) 11/21/2024 11/22/2019, 11/22/2019 INFLUENZA VACCINE (#1) 2025 04/13/2019 HEPATITIS B VACCINES Completed 10/17/1998, 06/06/1998, 04/30/1998 Preventative Visit- Commercial Completed 0 07/24/2024, 07/14/2023, 12/17/2020, Additional history exists Procedures Procedure Name Priority Date/Time Associated Diagnosis Comments CERV/VAG CYTO SCREEN PAP W/HPV Routine 11/22/2019 9:23 AM CDT from Last 3 Months or Most Recently Relevant to Health Maintenance Results * CERV/VAG CYTO SCREEN PAP W/HPV (11/22/2019 9:23 AM CDT) PAP INTERP See Separate Results 11/29/2019 9:36 AM CDT [facility] [employer] [facility] Genital SWAB OF ENDOCERVIX / Unknown Collection / Unknown 11/22/2019 9:23 AM CDT 11/23/2019 11:49 AM CDT us Lynn Andrade MD PATHOLOGY/CYTOLOGY ORD ERABLES Final Result [facility] CLIA# [id number] [place] [address] [facility] [employer] [facility] CLIA# [id number] [facility] [place] [address] from Last 3 Months or Most Recently Relevant to Health Maintenance Insurance [facility] Care Teams C.O.D. Clerk Relationship Specialty Start Date End Date Rene Worley MD [address] [facility] [address] [place] [id number] PCP - General Family Practice 05/31/16
--- OUTSIDE RECORDS SUMMARY | 2025-02-27 14:25 | XMS_ITS | Encounter Summary ---
Author Organization [facility] Address [address] [place] [address] Phone Care Team Providers Care Nursery Nurse Name Role Phone Rene Worley MD Primary Care Provider [phone] Encounter Details Date Type Department Care Team (Late st Contact Info) Description 09/26/2020 Orders Only [employer] [address] [place] [address] Alvarez Bunn MD [address] [place] [address] Autosomal dominant polycystic kidney Social History Tobacco Use Types Packs/Day Years [...] have Coronavirus / COVID-19? No / Unsure 09/02/2020 1:58 PM EST documented as of this encounter Plan of Treatment Not on file documented as of this encounter Procedures Procedure Name Priority Date/Time Associated Diagnosis Comments PROTEIN / CREATININE RATIO, URINE Routine 08/27/2020 Autosomal dominant polycystic kidney VITAMIN D 25 HYDROXY Routine 08/27/2020 Autosomal dominant polycystic kidney CBC Routine 08/27/2020 Autosomal dominant polycystic kidney RENAL FUNCTION PANEL Routine 08/27/2020 Autosomal dominant polycystic kidney documented in this encounter Results * Vit D 25 hydroxy (CKD 2,3,4,5) (08/27/2020) Vitamin D, 25-OH, Total 21 ng/mL [facility] Blood specimen (specimen) Venous blood / Unknown 08/27/2020 Alvarez Bunn MD LAB BLOOD ORDERABLES Fin al Result Performing Organization Address City/[facility] [address]/ZIP Co de Phone Number [facility] * Protein / creatinine ratio, urine (08/27/2020) Creatinine, Urine Random 194 mg/dL [facility] Microalbumin/Crea tinine Ratio 26 mg/dL [facility] Urine Microalbumin 5 mg/dL [facility] Urine specimen (specimen) Urine specimen obtained by clean catch procedure / Unknown 08/27/2020 Alvarez Bunn MD LAB URINE ORDERABLES Fin al Result [facility] * CBC (08/27/2020) WBC 4.5 K/uL [facility] Red Blood Cell Count 4.31 [facility] Hemoglobin 13.3 g/dL [facility] Hematocrit 42.1 % [facility] MCV 97.7 [facility] MCH 30.9 [facility] MCHC 31.6 [facility] RDW 12.2 [facility] Platelet Count 175 [facility] MPV 12.5 [facility] Absolute Neutrophils 2.47 [facility] Absolute Lymphocytes 1.4 [facility] Absolute Monocytes 0.5 [facility] Absolute Eosinophils 0.1 [facility] Absolute Basophils 0.1 [facility] Neutrophils 54.9 K/uL [facility] Lymphocytes 31.6 [facility] Monocytes 11.1 [facility] Eosinophils 1.1 [facility] Basophils 1.1 [facility] Blood specimen (specimen) Venous blood / Unknown 08/27/2020 Alvarez Bunn MD LAB BLOOD ORDERABLES Fin al Result [facility] * Renal function panel (08/27/2020) Pathologist [facility] Glucose 85 mg/dL [facility] BUN 19 mg/dL [facility] Creatinine 0.7 mg/dL [facility] Sodium 139 mEq/L [facility] Potassium 4.0 mEq/L [facility] Chloride 104 [facility] Carbon Dioxide 25 mmol/L [facility] Calcium 9.1 mg/dL [facility] Phosphorus, Serum 3.4 mg/dL [facility] Albumin (Blood) 4.5 g/dL [facility] eGFR Non-Afr Syrian 95.8 [facility] eGFR >60 [facility] Blood specimen (specimen) Venous blood / Unknown 08/27/2020 Narrative [facility] - 08/27/2020 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 [address] [place] [id number] Alvarez Bunn MD LAB BLOOD ORDERABLES Fin al Result [facility] documented in this encounter Visit Diagnoses Diagnosis Autosomal dominant polycystic kidney documented in this encounter Care Teams Nursery Nurse Relationship Specialty Start Date End Date Rene Worley MD [address] [facility] [address] [place] [address] PCP - General Family Medicine 09/26/19 documented as of this encounter
--- NOTE | 2025-02-27 15:03 | CTR_ITS ---
PROCEDURE INFORMATION: Exam: CT Abdomen And Pelvis With Contrast Exam date and time: 02/27/2025 3:32 PM Age: 39 years old Clinical indication: Abdominal pain; Generalized; Additional info: Abdomen/flank pain TECHNIQUE: Imaging protocol: Computed tomography of the abdomen and pelvis with contrast. Radiation optimization: All CT scans at this facility use at least one of these dose optimization techniques: automated exposure control; mA and/or kV adjustment per patient size (includes targeted exams where dose is matched to clinical indication); or iterative reconstruction. Contrast material: OMNIPAQUE 350; Contrast volume: 100 ml; Contrast route: INTRAVENOUS (IV); COMPARISON: CT kidney stone [id number] 05/30/2019 3:59 PM RADIATION DOSE METRICS: Total DLP (mGy-cm): 366.05 FINDINGS: Lungs: Lung bases are clear. Liver: Numerous simple cysts and subcentimeter presumed cysts scattered throughout the right and left hepatic lobes, measuring up to 2.7 cm. Gallbladder and biliary ducts: No radiodense gallstones. No biliary ductal dilation. Pancreas: Normal. Spleen: Normal. Adrenal glands: Normal. Kidneys and ureters: Enlarged kidneys, measuring 9.5 x 6.3 x 14.1 cm on the right and 8.7 x 6.7 x 15.5 cm of the left. Innumerable simple cysts throughout the bilateral kidneys. Several 8 mm and smaller nonobstructing stones are present bilaterally. Symmetrically enhancing kidneys. No hydronephrosis. Stomach and bowel: No dilated or inflamed bowel. Moderate colonic stool volume. Appendix: Normal. Intraperitoneal space: No free air. Trace free fluid in the pelvis, likely physiologic. Vasculature: No abdominal aortic aneurysm. Retroaortic left renal vein. Lymph nodes: No lymphadenopathy. Urinary bladder: Unremarkable as visualized. Reproductive: Unremarkable uterus. No adnexal mass. Bones/joints: No acute osseous abnormality. Soft tissues: Unremarkable. CT/CT abdomen pelvis w con* [id number] IMPRESSION: 1. No acute findings. 2. Kidney and liver findings compatible with autosomal dominant polycystic kidney disease. COMMENTS: Consistent with the [employer]'s Incidental Findings Committee white paper (J Am Satya Radiol 2018): Any incidental renal lesion less than 1 cm or classified as too small to characterize, or any incidental cystic renal lesion characterized as simple-appearing, is likely benign. No follow-up imaging is recommended for these lesions per consensus recommendations based on imaging criteria.
--- NOTE | 2025-02-27 15:03 | W.ED.GENADLT ---
HPI - General Adult General: Chief complaint: General Medical Stated complaint: Lower back to front pain thinks a cyst popped Time Seen by Provider: 02/27/25 15:01 History of Present Illness: 39-year-old female with a history of kidney stones and polycystic kidney disease who presents the emergency room with flank pain for several days. Started with left flank pain and now she has allover pain. She has had nausea and vomiting and has now developed fevers. Severe malaise. She is tachycardic and febrile on presentation. She says she took a Cipro earlier today. Related Data Home Medications ?Medication ?Instructions ?Recorded ?Confirmed acetaminophen 500 mg tablet 1,000 mg PO Q6H PRN Pain 02/27/25 02/27/25 Previous Rx's ?Medication ?Instructions ?Recorded clotrimazole-betamethasone 1 1 applic topical BID PRN rash 2 02/08/25 %-0.05 % topical cream weeks #45 grams ciprofloxacin HCl 250 mg tablet 250 mg PO BID 5 days #10 tabs 02/26/25 (Cipro) hydrocodone 5 mg-acetaminophen 325 1 tab PO Q6H PRN pain 5 days #20 02/26/25 mg tablet tabs Allergies Allergy/AdvReac Type Severity Reaction Status Date / Time Penicillins Allergy ALGY-Rash Verified 02/27/25 16:23 Review of Systems Narrative: Constitutional symptoms: Negative except as documented in HPI. Skin symptoms: Negative except as documented in HPI. Eye symptoms: Negative except as documented in HPI. ENMT symptoms: Negative except as documented in HPI. Respiratory symptoms: Negative except as documented in HPI. Cardiovascular symptoms: Negative except as documented in HPI. Gastrointestinal symptoms: Negative except as documented in HPI. Genitourinary symptoms: Negative except as documented in HPI. Musculoskeletal symptoms: Negative except as documented in HPI. Neurologic symptoms: Negative except as documented in HPI. Psychiatric symptoms: Negative except as documented in HPI. Endocrine symptoms: Negative except as documented in HPI. 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 Mother and brother both have polycystic kidney disease and have not had a significant deterioration in renal function. Surgical History (Updated 02/14/24 @ 13:23 by DENNYS Ambriz) Status post breast augmentation Family History Mother Polycystic kidney disease Social History Smoking and tobacco/nicotine status: never used tobacco/nicotine Alcohol intake: never Substance/Drug Use: unknown Adopted: No Caregiver/support person: No Lives independently: No Household members: spouse Marital status: Current occupational status: employed Current gender identity: Female Physical Exam Narrative: EXAM NARRATIVE: General: Alert, no acute distress. Skin: Warm, dry. Head: Normocephalic, atraumatic. Neck: Supple, trachea midline. Eye: Extraocular movements are intact. Ears, nose, mouth and throat: Tacky oral mucosa Cardiovascular: Regular, tachycardic, normal peripheral perfusion. Respiratory: Lungs are clear to auscultation, respirations are non-labored, breath sounds are equal, Symmetrical chest wall expansion. Gastrointestinal: Soft, complains of left flank pain, Non distended Musculoskeletal: Normal ROM, no deformity. Neurological: Alert and oriented, No focal neurological deficit observed. Psychiatric: Cooperative, appropriate mood & affect. Course Vital Signs: Vital signs: Vital Signs Temperature 100.8 F H 02/27/25 14:23 Pulse Rate 81 02/27/25 16:09 Respiratory Rate 16 02/27/25 16:09 Blood Pressure 119/67 02/27/25 15:24 Pulse Oximetry 97 02/27/25 16:09 Oxygen Delivery Me thod Room Air 02/27/25 16:09 MDM - General Adult Medical Decision Making Medical decision making: Differential diagnosis including but not limited to and based on the above HPI, review of systems and physical exam: In this patient with flank pain would have concern for: Ureterolithiasis. Urinary tract infection. Appendicitis. Cholecystitis. Musculoskeletal / back pain. Pyelonephritis. Orders placed to evaluate differential diagnosis based on the above differential, HPI and physical exam Lab Review: Laboratory results were reviewed and interpreted by myself the emergency room physician. White count is just 9 but is 90% neutrophils quite left shifted. No anemia. Creatinine is a little above her baseline at 1. She is normally 0.7. CRP is quite elevated at over 80. Lactic acid is only 1.5. Urinalysis is positive for 21-50 whites 21-50 reds nitrate positive and leukocyte esterase positive although no bacteria are seen CT of the abdomen pelvis with contrast: No acute findings. No stones or hydronephrosis. Patient does have autosomal dominant polycystic kidney disease. This is seen on the scan. This was reviewed and interpreted by myself the emergency room physician. I also reviewed the radiology report. I reviewed the patient's medical record. Reexamination: Patient's blood pressures improved and her heart rate has come down. She appears to have broken her fever and is having some sweats. I have concerned that she may have become bacteremic or septic and so I am going to admit her on IV antibiotics Consultation: I spoke with Dr. Liang who is on-call for the hospital service who agrees to admission. Assessment and plan: Pyelonephritis Dehydration Possible sepsis -2 L normal saline bolus. 30 mL/kg bolus. - IV cefepime was administered -Sepsis quality measures. -Lactic acid with a reflex was ordered. -Blood cultures were ordered. ?I reevaluated the patient's volume status after sepsis fluids were given. -I discussed the patient with the hospitalist on-call who is admitting the patient. - Discussed findings and plan with patient. Answered any questions. - All laboratory values were reviewed and interpreted personally by myself, the ER physician - All imaging was reviewed and interpreted personally by myself, the ER physician. - Evaluation and treatment of this problem were appropriate in the emergency setting Lab Data 02/27/25 15:13 02/27/25 15:13 Radiology Impressions Abdomen/Pelvis CT 02/27/25 15:03 IMPRESSION: 1. No acute findings. 2. Kidney and liver findings compatible with autosomal dominant polycystic kidney disease. COMMENTS: Consistent with the [employer]'s Incidental Findings Committee white paper (J Am Satya Radiol 2018): Any incidental renal lesion less than 1 cm or classified as too small to characterize, or any incidental cystic renal lesion characterized as simple-appearing, is likely benign. No follow-up imaging is recommended for these lesions per consensus recommendations based on imaging criteria. Laboratory Results WBC 9.18 10^3/uL (3.29-11.43) 02/27/25 15:13 RBC 3.87 10^6/uL (3.85-5.65) 02/27/25 15:13 Hgb 12.10 g/dL (11.27-16.99) 02/27/25 15:13 Hct 36.3 % (36-47) 02/27/25 15:13 MCV 93.8 fl (85-98) 02/27/25 15:13 MCH 31.3 pg (27-33) 02/27/25 15:13 MCHC 33.3 g/dL (30-55) 02/27/25 15:13 RDW 12.5 % (12.1-15.1) 02/27/25 15:13 Plt Count 142 10^3/cmm (157-399) L 02/27/25 15:13 MPV 10.9 fL (7.4-10.4) H 02/27/25 15:13 Neut % (Auto) 89.1 % 02/27/25 15:13 Lymph % (Auto) 3.6 % 02/27/25 15:13 [place] % (Auto) 6.6 % 02/27/25 15:13 Eos % (Auto) 0.0 % 02/27/25 15:13 Baso % (Auto) 0.4 % 02/27/25 15:13 Neut # (Auto) 8.17 10^3/uL (1.8-7.7) H 02/27/25 15:13 Lymph # (Auto) 0.3 10^3/uL (0.8-4.8) L 02/27/25 15:13 [place] # (Auto) 0.6 10^3/uL (0.2-0.9) 02/27/25 15:13 Eos # (Auto) 0.0 10^3/uL (0.0-0.8) 02/27/25 15:13 Baso # (Auto) 0.0 10^3/uL (0.0-0.1) 02/27/25 15:13 Nucleated RBC % (auto) 0 % 02/27/25 15:13 Nucleated RBCs # 0.0 /100WBC 02/27/25 15:13 Sodium 135 mmol/L (136-145) L 02/27/25 15:13 Potassium 3.6 mmol/L (3.5-5.1) 02/27/25 15:13 Chloride 100 mmol/L (98-107) 02/27/25 15:13 Carbon Dioxide 22 mmol/L (22-29) 02/27/25 15:13 Anion Gap 16.6 (5-19) 02/27/25 15:13 BUN 11 mg/dL (6-20) 02/27/25 15:13 Creatinine 1.0 mg/dL (0.5-0.9) H 02/27/25 15:13 GFR Calculation 62.1 mL/min (90-130) L 02/27/25 15:13 Glucose 115 mg/dL (65-115) 02/27/25 15:13 Calculated Osmolality 280 mOsm/kg (285-295) L 02/27/25 15:13 Lactic Acid 1.5 mmol/L (0.5-2.2) 02/27/25 15:13 Calcium 9.3 mg/dL (8.5-10.5) 02/27/25 15:13 Total Bilirubin 1.6 mg/dL (0.15-1.2) H 02/27/25 15:13 AST 29 U/L (0-32) 02/27/25 15:13 ALT 22 U/L (0-33) 02/27/25 15:13 Alkaline Phosphatase 47 U/L (35-105) 02/27/25 15:13 C-Reactive Protein 87.3 mg/L (0.0-4.9) H 02/27/25 15:13 Total Protein 7.1 g/dL (6.6-8.7) 02/27/25 15:13 Albumin 4.0 g/dL (3.5-5.2) 02/27/25 15:13 Globulin 3.1 g/dL (1.3-4.6) 02/27/25 15:13 HCG, Qual Negative (Negative) 02/27/25 15:02 Urine Color Dark yellow (Yellow) A 02/27/25 15:02 Urine Appearance Cloudy (CLEAR) A 02/27/25 15:02 Urine pH 7.5 (5-7) 02/27/25 15:02 Ur Specific [place] 1.018 (1.005-1.030) 02/27/25 15:02 Urine Protein 2+ (Negative) A 02/27/25 15:02 Urine Glucose (UA) Negative (Normal) 02/27/25 15:02 Urine Ketones Trace (Negative) 02/27/25 15:02 Urine Blood 2+ (Negative) A 02/27/25 15:02 Urine Nitrate Positive (Negative) A 02/27/25 15:02 Urine Bilirubin 1+ (Negative) H 02/27/25 15:02 Urine Urobilinogen 1.0 mg/dL (Negative) 02/27/25 15:02 Ur Leukocyte Esterase 1+ (Negative) A 02/27/25 15:02 Urine RBC 21-50 /hpf (0-2) H 02/27/25 15:02 Urine WBC 21-50 /hpf (0-5) H 02/27/25 15:02 Ur Squamous Epith Cells 0-5 /hpf (0-5) 02/27/25 15:02 Amorphous Sediment Not Reportable 02/27/25 15:02 Urine Bacteria None seen /hpf (NONE) 02/27/25 15:02 Hyaline Casts 6.17 /lpf 02/27/25 15:02 All radiology interpretation(s) finalized by discharge Discharge Plan Discharge Patient Disposition: Admitted As Inpatient Clinical Impression: Pyelonephritis, Polycystic kidney disease Condition: Stable Coding Level of Care Code 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
[2025-02-27] MEDS: ondansetron 2 mg/ML SDV 2 mL 8 MG IVP (15:17)
[2025-02-27 15:18] LABS: HCG Qualitative Urine. Negative (Negative)
[2025-02-27] MEDS: cefepime 2,000 mg SDV 2000 MG IVP (15:18)
[2025-02-27 15:20] LABS: Glucose Urine UA Negative (Normal); Nitrate Urine Positive (Negative); Specific Gravity, Urine 1.018 (1.005-1.030)
[2025-02-27 15:22] LABS: Hematocrit 36.3 % (36-47); Hemoglobin 12.10 g/dL (11.27-16.99); Mean Corpuscular HGB Conc 33.3 g/dL (30-55); Mean Corpuscular Hemoglobin 31.3 pg (27-33); Mean Corpuscular Volume 93.8 fl (85-98); Nucleated Red Blood Cells % 0 %; Platelet Count 142 10^3/cmm (157-399); Red Blood Count 3.87 10^6/uL (3.85-5.65); White Blood Count 9.18 10^3/uL (3.29-11.43)
[2025-02-27 15:46] LABS: Alanine Aminotransferase 22 U/L (0-33); Albumin Level 4.0 g/dL (3.5-5.2); Alkaline Phosphatase 47 U/L (35-105); Anion Gap 16.6 (5-19); Aspartate Amino Transferase 29 U/L (0-32); Blood Urea Nitrogen 11 mg/dL (6-20); Calcium 9.3 mg/dL (8.5-10.5); Carbon Dioxide 22 mmol/L (22-29); Chloride 100 mmol/L (98-107); Creatinine Clr Calc Pharmacy 69.5849; Globulin 3.1 g/dL (1.3-4.6); Glucose 115 mg/dL (65-115); Lactic Sepsis W/Reflex 1.5 mmol/L (0.5-2.2); Osmolality Calculated 280 mOsm/kg (285-295); Potassium 3.6 mmol/L (3.5-5.1); Sodium 135 mmol/L (136-145); Total Protein 7.1 g/dL (6.6-8.7)
--- NOTE | 2025-02-27 16:49 | P.HP_ITS ---
Providers/Chief Complaint 2 Primary Care Provider: Mazin Ramos Chief Complaint: Lower back to front pain thinks a cyst popped History of Present Illness Fabi Malik is a 39 year old female with history of adult polycystic kidney disease, kidney stones who presented to the hospital today with flank pain for last few days. Initially started off with flank pain however now the pain is all over. She also complains of nausea and vomiting and has been having fever at home. She feels really tired deconditioned weak and has malaise. Upon arrival to the ER patient was noted to be febrile and tachycardic. She states she took ciprofloxacin earlier this morning. Denies shortness of breath, chest pain. Medications/Allergies Home Medications ?Medication ?Instructions ?Recorded ?Confirmed ?Last Taken ?Type clotrimazole-betamethasone 1 1 applic topical BID PRN rash 2 02/08/25 02/27/25 Unknown Rx %-0.05 % topical cream weeks #45 grams ciprofloxacin HCl 250 mg tablet 250 mg PO BID 5 days # 10 tabs 02/26/25 02/27/25 02/27/25 Rx (Cipro) hydrocodone 5 mg-acetaminophen 325 1 tab PO Q6H PRN pa in 5 days #20 02/26/25 02/27/25 Unknown Rx mg tablet tabs acetaminophen 500 mg tablet 1,000 mg PO Q6H PRN Pain 0 02/27/25 02/27/25 02/27/25 History Allergies Allergy/AdvReac Type Severity Reaction Status Date / Time Penicillins Allergy ALGY-Rash Verified 02/27/25 16:23 PFSH Acute 2 PFSH: Medical History (Updated 02/27/25 @ 18:21 by Nia Liang MD) UTI (urinary tract infection) Renal pain Polycystic kidney disease Renal stone Breast cancer screening Vitamin B 12 deficiency Fatigue Anemia Medication management Flu-like symptoms Renal calculus, 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 Mother and brother both have polycystic kidney disease and have not had a significant deterioration in renal function. Surgical History (Updated 02/14/24 @ 13:23 by DENNYS Ambriz) Status post breast augmentation Family History Mother Polycystic kidney disease Social History Smoking and tobacco/nicotine status: never used tobacco/nicotine Alcohol intake: never Substance/Drug Use: unknown Adopted: No Caregiver/support person: No Lives independently: No Household members: spouse Marital status: Current occupational status: employed Current gender identity: Female Vitals/I&O/Wt Last Vital Signs Temp 100.8 F H 02/27/25 14:23 Pulse 81 02/27/25 16:09 Resp 16 02/27/25 16:09 BP 119/67 02/27/25 15:24 Pulse Ox 97 02/27/25 16:09 O2 Del Method Room Air 02/27/25 16:09 Weight last 48 hrs Weight 58.967 kg Physical Exam 2 Narrative: General: Alert oriented x3, patient seen laying in bed, no acute distress however complains of flank pain. HEENT: Normocephalic, atraumatic, EOMI, Cardio: Regular rate rhythm, normal S1-S2, Respiratory: Clear to auscultation bilaterally no wheezes or rhonchi. GI: Abdomen soft, flank pain present on left side., Bowel sounds + Extremities: No edema bilateral lower extremities Data 02/28/25 04:36 02/28/25 04:36 Micro: Microbiology 02/27/25 15:10 Blood Culture - Preliminary Blood SPECIMEN COLLECTED 02/27/25 15:13 Blood Culture - Preliminary Blood SPECIMEN COLLECTED A&P Assessment and plan 1. GERD (gastroesophageal reflux disease): 2. Polycystic kidney disease: 3. Renal pain: 4. SIRS (systemic inflammatory response syndrome): 5. Acute cystitis with hematuria: 6. Fever: Plan: #UTI #Suspicion of pyelonephritis #Fever malaise, flank pain #Adult polycystic kidney disease #Failed outpatient antibiotics ? Patient febrile on arrival tachycardic meets sirs criteria. Creatinine 1.0, total bilirubin 1.6, urinalysis positive for nitrates, 1+ leukocyte esterase 21- 50 WBCs, febrile, tachycardic on arrival, hyportensive on arrival 93/53. Lactic acid normal ? CT abdomen pelvis shows no acute findings, kidney and liver findings compatible with autosomal dominant polycystic kidney disease. Several 8 mm smaller nonobstructing stones are present bilaterally. Symmetrically enhancing kidneys no hydronephrosis. - Check blood cultures, urine culture ? Will place on meropenem 1 g every 8 hours. Patient is allergic to penicillin. ? Pain control, ? Tylenol for fever ? Zofran for nausea ?IV fluid hydration with normal saline 125 cc/h. ? Check chlamydia gonorrhea, HIV Full code DVT prophylaxis: Heparin SQ twice daily PDMP PDMP Reviewed: Not Reviewed Attestations 2 Medical Necessity Statement*: UTI with suspicion of pyelonephritis. Diagnoses GERD (gastroesophageal reflux disease) K21.9 Polycystic kidney disease Q61.3 Renal pain N23 SIRS (systemic inflammatory response syndrome) R65.10 Acute cystitis with hematuria N30.01 Fever R50.9
[2025-02-27] MEDS: meropenem 1,000 mg SDV 1000 MG IVP (17:18)
[2025-02-27] MEDS: heparin 5,000 unit/mL INJ 1 mL 5000 UNIT SUBCUT (17:18)
[2025-02-27 17:36] LABS: Procalcitonin 3.96 ng/mL (0-0.5); Thyroid Stimulating Hormone 0.86 uIU/mL (0.27-4.20)
[2025-02-27 18:50] LABS: HIV 1 & 2 Antigen Non-Reactive (Non-Reactiv)
[2025-02-27 20:12] LABS: Neisseria Gonorrhea NOT DETECTED (Negative)
[2025-02-28] VITALS (7 sets, daily range): BP systolic 95–121; BP diastolic 51–61; PULSE 56–77; RESP 15–17; TEMP 36.9–38.7; O2SAT 95–99
[2025-02-28 00:03] LABS: Respiratory Syncytial Virus Ce NEGATIVE (Negative); SARS-CoV-2 PCR NEGATIVE (Negative)
[2025-02-28] MEDS: meropenem 1,000 mg SDV 1000 MG IVP ×3 (01:03→16:44)
[2025-02-28 05:46] LABS: Hematocrit 33.0 % (36-47); Hemoglobin 10.50 g/dL (11.27-16.99); Mean Corpuscular HGB Conc 31.8 g/dL (30-55); Mean Corpuscular Hemoglobin 31.1 pg (27-33); Mean Corpuscular Volume 97.6 fl (85-98); Nucleated Red Blood Cells % 0 %; Platelet Count 113 10^3/cmm (157-399); Red Blood Count 3.38 10^6/uL (3.85-5.65); White Blood Count 6.65 10^3/uL (3.29-11.43)
[2025-02-28 06:00] LABS: Alanine Aminotransferase 15 U/L (0-33); Albumin Level 3.2 g/dL (3.5-5.2); Alkaline Phosphatase 54 U/L (35-105); Anion Gap 14.9 (5-19); Aspartate Amino Transferase 17 U/L (0-32); Blood Urea Nitrogen 9 mg/dL (6-20); Calcium 7.8 mg/dL (8.5-10.5); Carbon Dioxide 20 mmol/L (22-29); Chloride 108 mmol/L (98-107); Creatinine Clr Calc Pharmacy 72.0670; Globulin 2.5 g/dL (1.3-4.6); Glucose 92 mg/dL (65-115); Magnesium 1.8 mg/dL (1.7-2.3); Osmolality Calculated 286 mOsm/kg (285-295); Potassium 3.9 mmol/L (3.5-5.1); Sodium 139 mmol/L (136-145); Total Protein 5.7 g/dL (6.6-8.7)
[2025-02-28] MEDS: ondansetron 2 mg/ML SDV 2 mL 4 MG IVP (12:10)
--- NOTE | 2025-02-28 13:11 | P.PN_ITS ---
Subjective 2 Subjective: Febrile overnight. 101. Urine culture pending Subjectively feeling slightly better. Vitals/I&O/Wt Last Vital Signs Temp 101.6 F H 02/28/25 11:48 Pulse 73 02/28/25 11:48 Resp 16 02/28/25 11:48 BP 121/61 02/28/25 11:48 Pulse Ox 99 02/28/25 11:48 O2 Del Method Room Air 02/28/25 11:48 02/27/25 02/28/25 02/28/25 22:59 06:59 14:59 Intake Total 2240 / 2240 966.667 / 3206.667 1240 / 1240 Balance 2240 / 2240 966.667 / 3206.667 1240 / 1240 Weight last 48 hrs Weight 49.158 kg Weight 48.988 kg Weight 58.967 kg Physical Exam 2 Narrative: General: Alert oriented x3, patient seen laying in bed, no acute distress HEENT: Normocephalic, atraumatic, EOMI, Cardio: Regular rate rhythm, normal S1-S2, Respiratory: Clear to auscultation bilaterally no wheezes or rhonchi. GI: Abdomen soft, flank pain present on left side but improved compared to yesterday., Bowel sounds + Extremities: No edema bilateral lower extremities Data 02/28/25 04:36 02/28/25 04:36 Micro: Microbiology 02/27/25 15:10 Blood Culture - Preliminary Blood SPECIMEN COLLECTED 02/27/25 15:13 Blood Culture - Preliminary Blood SPECIMEN COLLECTED A&P Assessment and plan 1. GERD (gastroesophageal reflux disease): 2. Polycystic kidney disease: 3. Renal pain: 4. SIRS (systemic inflammatory response syndrome): 5. Acute cystitis with hematuria: 6. Fever: Plan: #UTI #Suspicion of pyelonephritis #Fever malaise, flank pain #Adult polycystic kidney disease #Failed outpatient antibiotics ? Patient febrile on arrival tachycardic meets sirs criteria. Creatinine 1.0, total bilirubin 1.6, urinalysis positive for nitrates, 1+ leukocyte esterase 21- 50 WBCs, febrile, tachycardic on arrival, hyportensive on arrival 93/53. Lactic acid normal ? CT abdomen pelvis shows no acute findings, kidney and liver findings compatible with autosomal dominant polycystic kidney disease. Several 8 mm smaller nonobstructing stones are present bilaterally. Symmetrically enhancing kidneys no hydronephrosis. - Check blood cultures, urine culture ? Will place on meropenem 1 g every 8 hours. Patient is allergic to penicillin. ? Pain control, ? Tylenol for fever ? Zofran for nausea ?IV fluid hydration with normal saline 125 cc/h. ? Check chlamydia gonorrhea, HIV Full code DVT prophylaxis: Heparin SQ twice daily 02/28/2025 Await urine culture STD screen negative Procalcitonin 3.96 on admission We will repeat in AM. Continue pain control Tylenol for fever Normal saline to be stopped. Patient's blood pressure is better today. Continue meropenem PDMP PDMP Reviewed: Not Reviewed Attestations 2 Medical Necessity Statement*: UTI with suspicion of pyelonephritis. Diagnoses GERD (gastroesophageal reflux disease) K21.9 Polycystic kidney disease Q61.3 Renal pain N23 SIRS (systemic inflammatory response syndrome) R65.10 Acute cystitis with hematuria N30.01 Fever R50.9
[2025-03-01] VITALS (8 sets, daily range): BP systolic 97–119; BP diastolic 56–78; PULSE 51–72; RESP 15–17; TEMP 36.8–37.3; O2SAT 95–99
[2025-03-01] MEDS: meropenem 1,000 mg SDV 1000 MG IVP ×3 (00:41→16:18)
[2025-03-01 05:02] LABS: Hematocrit 31.9 % (36-47); Hemoglobin 10.40 g/dL (11.27-16.99); Mean Corpuscular HGB Conc 32.6 g/dL (30-55); Mean Corpuscular Hemoglobin 31.8 pg (27-33); Mean Corpuscular Volume 97.6 fl (85-98); Nucleated Red Blood Cells % 0 %; Platelet Count 105 10^3/cmm (157-399); Red Blood Count 3.27 10^6/uL (3.85-5.65); White Blood Count 4.40 10^3/uL (3.29-11.43)
[2025-03-01 05:26] LABS: Anion Gap 13.0 (5-19); Blood Urea Nitrogen 6 mg/dL (6-20); Calcium 7.8 mg/dL (8.5-10.5); Carbon Dioxide 22 mmol/L (22-29); Chloride 111 mmol/L (98-107); Creatinine Clr Calc Pharmacy 92.6575; Glucose 97 mg/dL (65-115); Magnesium 1.9 mg/dL (1.7-2.3); Osmolality Calculated 292 mOsm/kg (285-295); Potassium 4.0 mmol/L (3.5-5.1); Sodium 142 mmol/L (136-145)
[2025-03-01 07:41] LABS: Procalcitonin 8.13 ng/mL (0-0.5)
--- NOTE | 2025-03-01 09:58 | PC.CHAP ---
Pastoral Care Encounter/Spiritual Assessment Type of Contact [] Declined urban designer visit [] Patient/Family/Request visit [] Outpatient visit [] Follow-up visit [] Physician referral [] Code/Alert [x] Routine visit [] Staff referral [] Actively dying [] Patient sleeping [x] Family support [] [] Out of room [] Palliative care [] [] Receiving care in room [] Pre-surgical visit [] Trauma [] Long length of stay [] ICU visit [] Other: Relational/Emotional Strength [x] Patient feels connected with others/family/visitors/staff [] Distress [] Loneliness/isolation [] Abandonment Spirituality of Patient [x] Person of Eliana [] Attends Judaism of their Eliana [x] Believes in Prayer [] Reads Bible or Jew materials [] There are Spiritual issues to be addressed Healthcare Management Interventions [x] Prayer [x] Active listening [] Non-anxious presence [x] Spiritual/emotional support [] Crisis/trauma care [] Spiritual counseling [] Bereavement support [] Provided bereavement packet [] Provided Bible/devotional materials [] Provided toy/stuffed animal, coloring book to patient or family member [] Provided Communion [] Anointing/[place] [] Salvation [x] Completed spiritual assessment [] Other: Impact on Illness or Injury [] Angry [] Fearful [] Anxious [] Often cries [] Exhaustion [] Unable to work [] Unable to attend pentecostal [] Unable to walk/stand [] Unable to read [] Unable to drive [] Unable to eat/drink [] Unable to sleep [] Unable to be with family [] Patient intubated [] Other: Summary Time spent with patient 5 min
--- NOTE | 2025-03-01 13:50 | PM.TDS ---
Transfer Summary Providers Date of Admission: 02/27/25 17:06 Date of Discharge/Transfer: 03/01/25 Attending Provider at Admission: Nia Liang MD Attending Provider at Transfer: Nia Liang MD Primary Care Provider: Mazin Ramos Transfer Plans: Anticipated date of transfer: 03/01/25. Receiving Facility: [facility]. Receiving Provider: dr. vee. Diagnoses at Discharge Discharge Diagnosis 1. Gastroesophageal reflux disease, esophagitis presence not specified: 2. Polycystic kidney disease: 3. Renal pain: 4. SIRS (systemic inflammatory response syndrome): 5. Acute cystitis with hematuria: 6. Fever: Reason for Visit Reason for Visit Lower back to front pain thinks a cyst popped Hospital Course Hospital Course Fabi Malik is a 39 year old female with history of adult polycystic kidney disease, kidney stones who presented to the hospital today with flank pain for last few days. Initially started off with flank pain however now the pain is all over. She also complains of nausea and vomiting and has been having fever at home. She feels really tired deconditioned weak and has malaise. Upon arrival to the ER patient was noted to be febrile and tachycardic. She states she took ciprofloxacin earlier this morning. Denies shortness of breath, chest pain. #UTI #Suspicion of pyelonephritis #Fever malaise, flank pain #Adult polycystic kidney disease #Failed outpatient antibiotics ? Patient febrile on arrival tachycardic meets sirs criteria. Creatinine 1.0, total bilirubin 1.6, urinalysis positive for nitrates, 1+ leukocyte esterase 21-50 WBCs, febrile, tachycardic on arrival, hyportensive on arrival 93/53. Lactic acid normal ? CT abdomen pelvis shows no acute findings, kidney and liver findings compatible with autosomal dominant polycystic kidney disease. Several 8 mm smaller nonobstructing stones are present bilaterally. Symmetrically enhancing kidneys no hydronephrosis. - Check blood cultures, urine culture ? Will place on meropenem 1 g every 8 hours. Patient is allergic to penicillin. ? Pain control, ? Tylenol for fever ? Zofran for nausea ?IV fluid hydration with normal saline 125 cc/h. ? Check chlamydia gonorrhea, HIV Patient was admitted for UTI. Procalcitonin on admission was 3.96 hours however is trending upwards to 8. Patient continues to have body aches malaise. Has been febrile as well. Low-grade fever overnight 99.8. Since this morning has been afebrile. However has been taking Tylenol scheduled [id number]. I worry if this may be masking a fever. Patient states that she took ciprofloxacin for about 3 days outpatient before coming to the hospital. Patient's mother is at bedside voicing concerns regarding patient's polycystic kidney and stating that their family battles with this disease since 2 [place] members have required kidney transplants in the past due to polycystic kidney. They would like for me to discuss her care with patient's veterans service representative Dr. Carroll in [facility]. I discussed care with [facility] and reassured decision making at this point and ID consult is warranted. Patient's veterans service representative is also at [facility]. Nephrology will consult on the case and would like us to admit to the hospitalist as able accept the patient for transfer at this time. Due to patient being high risk and patient's veterans service representative being in [facility] we will transfer the patient at this time for ID consult and further care. Physical Exam Narrative: General: Alert oriented x3, patient seen laying in bed, no acute distress HEENT: Normocephalic, atraumatic, EOMI, Cardio: Regular rate rhythm, normal S1-S2, Respiratory: Clear to auscultation bilaterally no wheezes or rhonchi. GI: Abdomen soft, flank pain present improving Bowel sounds + Extremities: No edema bilateral lower extremities TS Data Studies Completed and Pending Pending at discharge Category Date Time Status Blood Culture Stat Lab 02/27/25 15:10 Results Completed Studies During Hospitalization Category Date Time Status CT abdomen pelvis w con* [id number] Stat Cat Scan 02/27/25 15:03 Completed Laboratory Last Values WBC 4.40 10^3/uL (3.29-11.43) 03/01/25 04:34 RBC 3.27 10^6/uL (3.85-5.65) L 03/01/25 04:34 Hgb 10.40 g/dL (11.27-16.99) L 03/01/25 04:34 Hct 31.9 % (36-47) L 03/01/25 04:34 MCV 97.6 fl (85-98) 03/01/25 04:34 MCH 31.8 pg (27-33) 03/01/25 04:34 MCHC 32.6 g/dL (30-55) 03/01/25 04:34 RDW 12.6 % (12.1-15.1) 03/01/25 04:34 Plt Count 105 10^3/cmm (157-399) L 03/01/25 04:34 MPV 11.3 fL (7.4-10.4) H 03/01/25 04:34 Neut % (Auto) 60.3 % 03/01/25 04:34 Lymph % (Auto) 18.9 % 03/01/25 04:34 Christian % (Auto) 18.6 % 03/01/25 04:34 Eos % (Auto) 1.1 % 03/01/25 04:34 Baso % (Auto) 0.9 % 03/01/25 04:34 Neut # (Auto) 2.65 10^3/uL (1.8-7.7) 03/01/25 04:34 Lymph # (Auto) 0.8 10^3/uL (0.8-4.8) 03/01/25 04:34 Christian # (Auto) 0.8 10^3/uL (0.2-0.9) 03/01/25 04:34 Eos # (Auto) 0.1 10^3/uL (0.0-0.8) 03/01/25 04:34 Baso # (Auto) 0.0 10^3/uL (0.0-0.1) 03/01/25 04:34 Nucleated RBC % (auto) 0 % 03/01/25 04:34 Nucleated RBCs # 0.0 /100WBC 03/01/25 04:34 Sodium 142 mmol/L (136-145) 03/01/25 04:34 Potassium 4.0 mmol/L (3.5-5.1) 03/01/25 04:34 Chloride 111 mmol/L (98-107) H 03/01/25 04:34 Carbon Dioxide 22 mmol/L (22-29) 03/01/25 04:34 Anion Gap 13.0 (5-19) 03/01/25 04:34 BUN 6 mg/dL (6-20) 03/01/25 04:34 Creatinine 0.7 mg/dL (0.5-0.9) 03/01/25 04:34 GFR Calculation 93.6 mL/min (90-130) 03/01/25 04:34 Glucose 97 mg/dL (65-115) 03/01/25 04:34 Calculated Osmolality 292 mOsm/kg (285-295) 03/01/25 04:34 Lactic Acid 1.5 mmol/L (0.5-2.2) 02/27/25 15:13 Calcium 7.8 mg/dL (8.5-10.5) L 03/01/25 04:34 Magnesium 1.9 mg/dL (1.7-2.3) 03/01/25 04:34 Total Bilirubin 0.8 mg/dL (0.15-1.2) 02/28/25 04:36 AST 17 U/L (0-32) 02/28/25 04:36 ALT 15 U/L (0-33) 02/28/25 04:36 Alkaline Phosphatase 54 U/L (35-105) 02/28/25 04:36 C-Reactive Protein 87.3 mg/L (0.0-4.9) H 02/27/25 15:13 Total Protein 5.7 g/dL (6.6-8.7) L 02/28/25 04:36 Albumin 3.2 g/dL (3.5-5.2) L 02/28/25 04:36 Globulin 2.5 g/dL (1.3-4.6) 02/28/25 04:36 Procalcitonin 8.13 ng/mL (0-0.5) H 03/01/25 04:44 TSH 0.86 uIU/mL (0.27-4.20) 02/27/25 15:13 HCG, Qual Negative (Negative) 02/27/25 15:02 Urine Color Dark yellow (Yellow) A 02/27/25 15:02 Urine Appearance Cloudy (CLEAR) A 02/27/25 15:02 Urine pH 7.5 (5-7) 02/27/25 15:02 Ur Specific [place] 1.018 (1.005-1.030) 02/27/25 15:02 Urine Protein 2+ (Negative) A 02/27/25 15:02 Urine Glucose (UA) Negative (Normal) 02/27/25 15:02 Urine Ketones Trace (Negative) 02/27/25 15:02 Urine Blood 2+ (Negative) A 02/27/25 15:02 Urine Nitrate Positive (Negative) A 02/27/25 15:02 Urine Bilirubin 1+ (Negative) H 02/27/25 15:02 Urine Urobilinogen 1.0 mg/dL (Negative) 02/27/25 15:02 Ur Leukocyte Esterase 1+ (Negative) A 02/27/25 15:02 Urine RBC 21-50 /hpf (0-2) H 02/27/25 15:02 Urine WBC 21-50 /hpf (0-5) H 02/27/25 15:02 Ur Squamous Epith Cells 0-5 /hpf (0-5) 02/27/25 15:02 Amorphous Sediment Not Reportable 02/27/25 15:02 Urine Bacteria None seen /hpf (NONE) 02/27/25 15:02 Hyaline Casts 6.17 /lpf 02/27/25 15:02 C. trachomatis (PCR) Not detected (Negative) 02/27/25 15:02 HIV 1&2 Ab & HIV 1 Ag Non-reactive (Non-Reactiv) 02/27/25 15:13 HIV 1&2 Antibody Non-reactive (Non-Reactiv) 02/27/25 15:13 Influenza A (PCR) Negative (Negative) 02/27/25 23:20 Influenza Type B (PCR) Negative (Negative) 02/27/25 23:20 N. gonorrhoeae (PCR) Not detected (Negative) 02/27/25 15:02 RSV (PCR) Negative (Negative) 02/27/25 23:20 SARS-CoV-2 (PCR) Negative (Negative) 02/27/25 23:20 Radiology Impressions Abdomen/Pelvis CT 02/27/25 15:03 IMPRESSION: 1. No acute findings. 2. Kidney and liver findings compatible with autosomal dominant polycystic kidney disease. COMMENTS: Consistent with the [employer]'s Incidental Findings Committee white paper (J Am Satya Radiol 2018): Any incidental renal lesion less than 1 cm or classified as too small to characterize, or any incidental cystic renal lesion characterized as simple-appearing, is likely benign. No follow-up imaging is recommended for these lesions per consensus recommendations based on imaging criteria. Recent Clincial Data Last Vital Signs Temp 98.2 F 03/01/25 12:00 Pulse 62 03/01/25 12:00 Resp 15 03/01/25 12:00 BP 110/64 03/01/25 12:00 Pulse Ox 97 03/01/25 12:00 O2 Del Method Room Air 03/01/25 12:00 Vital Signs Temp Pulse Resp BP Pulse Ox O2 Del Method 03/01/25 12:00 98.2 F 62 15 110/64 97 Room Air 03/01/25 08:00 98.4 F 56 L 16 97/56 03/01/25 07:25 98.4 F 56 L 16 97/56 96 Room Air 03/01/25 06:00 51 L 03/01/25 04:00 99.1 F 64 17 107/67 97 Room Air Intake & Output/Weight 02/27/25 02/28/25 03/01/25 03/02/25 06:59 06:59 06:59 06:59 Intake Total 3206.667 / 3206.667 3667.917 / 3667.917 1145.000 / 1145.000 Balance 3206.667 / 3206.667 3667.917 / 3667.917 1145.000 / 1145.000 Weight 49.158 kg 43.573 kg Vitals Last Vital Signs Temp 98.2 F 03/01/25 12:00 Pulse 62 03/01/25 12:00 Resp 15 03/01/25 12:00 BP 110/64 03/01/25 12:00 Pulse Ox 97 03/01/25 12:00 O2 Del Method Room Air 03/01/25 12:00 TS Medications Medications Acetaminophen (Acetaminophen 325 Mg Tablet) 650 mg PO Q6H PRN PRN Reason: Mild/Mod Pain Or Temp >/= 101 Last Admin: 03/01/25 08:07 Dose: 650 mg Heparin Sodium (Porcine) (Heparin 5,000 Unit/Ml Inj 1 Ml) 5,000 unit SUBCUT Q12H CHIQUITA Last Admin: 03/01/25 04:40 Dose: Not Given Meropenem (Meropenem 1,000 Mg Sdv) 1,000 mg IVP Q8H CHIQUITA; Protocol Last Admin: 03/01/25 08:01 Dose: 1,000 mg Ondansetron HCl (Ondansetron 2 Mg/Ml Sdv 2 Ml) 4 mg IVP Q8H PRN PRN Reason: vomiting, or N/V if npo Last Admin: 02/28/25 12:10 Dose: 4 mg Discontinued Medications Cefepime HCl (Cefepime 2,000 Mg Sdv) 2,000 mg IVP ONCE STA; Protocol Stop: 02/27/25 15:04 Last Admin: 02/27/25 15:18 Dose: 2,000 mg Sodium Chloride (Sodium Chloride 0.9%) 1,000 mls @ 999 mls/hr IV .Q1H1M ONE Stop: 02/27/25 16:01 Last Infusion: 02/27/25 16:55 Dose: Infused Sodium Chloride (Sodium Chloride 0.9%) 1,000 mls @ 999 mls/hr IV .Q1H1M ONE Stop: 02/27/25 16:47 Last Infusion: 02/27/25 16:55 Dose: Infused Sodium Chloride (Sodium Chloride 0.9%) 1,000 mls @ 125 mls/hr IV .Q8H CHIQUITA Last Infusion: 03/01/25 08:53 Dose: Infused Ketorolac Tromethamine (Ketorolac 30 Mg/Ml Inj) 30 mg IVP ONCE ONE Stop: 02/27/25 15:02 Last Admin: 02/27/25 15:17 Dose: 30 mg Ondansetron HCl (Ondansetron 2 Mg/Ml Sdv 2 Ml) 8 mg IVP ONCE ONE Stop: 02/27/25 15:02 Last Admin: 02/27/25 15:17 Dose: 8 mg Allergies Penicillins Allergy (Verified 02/27/25 16:23) ALGY-Rash Home Medications clotrimazole-betamethasone 1 %-0.05 % topical cream 1 applic topical BID PRN rash 2 weeks #45 grams 02/08/25 [Rx Confirmed 02/27/25] ciprofloxacin HCl 250 mg tablet (Cipro) 250 mg PO BID 5 days #10 tabs 02/26/25 [Rx Confirmed 02/27/25] hydrocodone 5 mg-acetaminophen 325 mg tablet 1 tab PO Q6H PRN pain 5 days #20 tabs 02/26/25 [Rx Confirmed 02/27/25] acetaminophen 500 mg tablet 1,000 mg PO Q6H PRN Pain 02/27/25 [History Confirmed 02/27/25] Discharge Plan Discharge Patient Disposition: Xfer Short-Term Hosp Condition: Stable Prescriptions: No Action clotrimazole-betamethasone 1-0.05 % cream 1 applic topical BID PRN (Reason: rash) 14 Days Qty: 45 0RF ciprofloxacin HCl [Cipro] 250 mg tablet 250 mg PO BID 5 Days Qty: 10 0RF hydrocodone-acetaminophen 5-325 mg tablet 1 tab PO Q6H PRN (Reason: pain) 5 Days Qty: 20 0RF acetaminophen 500 mg Tablet 1,000 mg PO Q6H PRN (Reason: Pain) Referrals: [facility] [Outside, Nephrology] Referral Note: Dr Alvarez Bunn [facility] Location [address] [place] [address] FAX: [phone] Problems: Polycystic kidney disease; Pyelonephritis Mazin Ramos FNP [Primary Care Provider, [facility]] Transfer Attestations Time Spent in Transfer Care: greater than 30 min Quality Metrics Clinical Quality Measures [ No reported AMI, CVA or VTE this stay] Coding Level of Care Code Acute Code for Chg Fwd Diagnoses Gastroesophageal reflux disease, esophagitis presence not specified K21.9 Esophagitis presence: esophagitis presence not specified Polycystic kidney disease Q61.3 Renal pain N23 SIRS (systemic inflammatory response syndrome) R65.10 Acute cystitis with hematuria N30.01 Urinary tract infection type: acute cystitis Hematuria presence: with hematuria Fever R50.9
[2025-03-02] MEDS: meropenem 1,000 mg SDV 1000 MG IVP ×3 (01:36→12:26)
[2025-03-02 04:00] VITALS: BP 120/74; PULSE 62; RESP 16; TEMP 36.9; O2SAT 97
[2025-03-02 06:11] LABS: Procalcitonin 3.71 ng/mL (0-0.5)
[2025-03-02 07:41] VITALS: BP 110/65; PULSE 68; RESP 15; TEMP 36.9; O2SAT 98
[2025-03-02 11:37] VITALS: BP 119/77; PULSE 68; RESP 16; TEMP 37.1; O2SAT 97
--- NOTE | 2025-03-02 11:48 | PM.DCS ---
Discharge Providers Date of Admission: 02/27/25 17:06 Date of Discharge: March 02, 2025 Attending Provider at Admission: Nia Liang MD Attending Provider at Discharge: Nia Liang MD Primary Care Provider: Mazin Ramos Diagnoses at Discharge Discharge Diagnosis 1. Gastroesophageal reflux disease, esophagitis presence not specified: 2. Polycystic kidney disease: 3. Renal pain: 4. SIRS (systemic inflammatory response syndrome): 5. Acute cystitis with hematuria: 6. Fever: Reason for Visit Reason for Visit: Lower back to front pain thinks a cyst popped Hospital Course Hospital Course Fabi Malik is a 39 year old female with history of adult polycystic kidney disease, kidney stones who presented to the hospital today with flank pain for last few days. Initially started off with flank pain however now the pain is all over. She also complains of nausea and vomiting and has been having fever at home. She feels really tired deconditioned weak and has malaise. Upon arrival to the ER patient was noted to be febrile and tachycardic. She states she took ciprofloxacin earlier this morning. Denies shortness of breath, chest pain. #UTI #Suspicion of pyelonephritis #Fever malaise, flank pain #Adult polycystic kidney disease #Failed outpatient antibiotics ? Patient febrile on arrival tachycardic meets sirs criteria. Creatinine 1.0, total bilirubin 1.6, urinalysis positive for nitrates, 1+ leukocyte esterase 21-50 WBCs, febrile, tachycardic on arrival, hyportensive on arrival 93/53. Lactic acid normal ? CT abdomen pelvis shows no acute findings, kidney and liver findings compatible with autosomal dominant polycystic kidney disease. Several 8 mm smaller nonobstructing stones are present bilaterally. Symmetrically enhancing kidneys no hydronephrosis. - Check blood cultures, urine culture ? Will place on meropenem 1 g every 8 hours. Patient is allergic to penicillin. ? Pain control, ? Tylenol for fever ? Zofran for nausea ?IV fluid hydration with normal saline 125 cc/h. ? Check chlamydia gonorrhea, HIV Patient was admitted for UTI. Procalcitonin on admission was 3.96 hours however is trending upwards to 8. Patient continues to have body aches malaise. Has been febrile as well. Low-grade fever overnight 99.8. Since this morning has been afebrile. However has been taking Tylenol scheduled [id number]. I worry if this may be masking a fever. Patient states that she took ciprofloxacin for about 3 days outpatient before coming to the hospital. Patient's mother is at bedside voicing concerns regarding patient's polycystic kidney and stating that their family battles with this disease since 2 [place] members have required kidney transplants in the past due to polycystic kidney. They would like for me to discuss her care with patient's [place] Dr. Carroll in [facility]. I discussed care with [facility] and reassured decision making at this point and ID consult is warranted. Patient's [place] is also at [facility]. Nephrology will consult on the case and would like us to admit to the hospitalist as able accept the patient for transfer at this time. Due to patient being high risk and patient's [place] being in [place] we will transfer the patient at this time for ID consult and further care. Later declined transfer and wanted to stay at our hospital. Procalcitonin started trending down and she was completely asymptomatic and afebrile for greater than 24-hour period without using Tylenol. At this time we will transition her to oral ciprofloxacin 500 twice daily x 7 days and asked her to closely follow-up with her [place] in [place] to which she agreed to. I also advised her to come back to the hospital if she notices fever malaise flank pain or worsening symptoms or development of new symptoms. Patient in agreement and understands the plan. We will discharge home in stable condition at this time. Of note patient did clarify to me that she did not take ciprofloxacin for 3 days prior to hospital admission and she had only taken 3 tablets total which were 250 mg in strength.. Physical Exam Narrative: General: Alert oriented x3, patient seen laying in bed, no acute distress HEENT: Normocephalic, atraumatic, EOMI, Cardio: Regular rate rhythm, normal S1-S2, Respiratory: Clear to auscultation bilaterally no wheezes or rhonchi. GI: Abdomen soft, no flank pain, Turpin's punch sign negative. Bowel sounds + Extremities: No edema bilateral lower extremities Discharge Data Studies Completed and Pending Completed Studies During Hospitalization Category Date Time Status CT abdomen pelvis w con* [id number] Stat Cat Scan 02/27/25 15:03 Completed Pending at discharge Category Date Time Status Basic Metabolic Panel AM LABS Lab 03/03/25 04:00 Ordered Blood Culture Stat Lab 02/27/25 15:10 Results Complete Blood Count w/Auto AM LABS Lab 03/03/25 04:00 Ordered Radiology Impressions Abdomen/Pelvis CT 02/27/25 15:03 IMPRESSION: 1. No acute findings. 2. Kidney and liver findings compatible with autosomal dominant polycystic kidney disease. COMMENTS: Consistent with the [employer]'s Incidental Findings Committee white paper (J Am Satya Radiol 2018): Any incidental renal lesion less than 1 cm or classified as too small to characterize, or any incidental cystic renal lesion characterized as simple-appearing, is likely benign. No follow-up imaging is recommended for these lesions per consensus recommendations based on imaging criteria. Laboratory Results WBC 4.40 10^3/uL (3.29-11.43) 03/01/25 04:34 RBC 3.27 10^6/uL (3.85-5.65) L 03/01/25 04:34 Hgb 10.40 g/dL (11.27-16.99) L 03/01/25 04:34 Hct 31.9 % (36-47) L 03/01/25 04:34 MCV 97.6 fl (85-98) 03/01/25 04:34 MCH 31.8 pg (27-33) 03/01/25 04:34 MCHC 32.6 g/dL (30-55) 03/01/25 04:34 RDW 12.6 % (12.1-15.1) 03/01/25 04:34 Plt Count 105 10^3/cmm (157-399) L 03/01/25 04:34 MPV 11.3 fL (7.4-10.4) H 03/01/25 04:34 Neut % (Auto) 60.3 % 03/01/25 04:34 Lymph % (Auto) 18.9 % 03/01/25 04:34 Davis % (Auto) 18.6 % 03/01/25 04:34 Eos % (Auto) 1.1 % 03/01/25 04:34 Baso % (Auto) 0.9 % 03/01/25 04:34 Neut # (Auto) 2.65 10^3/uL (1.8-7.7) 03/01/25 04:34 Lymph # (Auto) 0.8 10^3/uL (0.8-4.8) 03/01/25 04:34 Davis # (Auto) 0.8 10^3/uL (0.2-0.9) 03/01/25 04:34 Eos # (Auto) 0.1 10^3/uL (0.0-0.8) 03/01/25 04:34 Baso # (Auto) 0.0 10^3/uL (0.0-0.1) 03/01/25 04:34 Nucleated RBC % (auto) 0 % 03/01/25 04:34 Nucleated RBCs # 0.0 /100WBC 03/01/25 04:34 Sodium 142 mmol/L (136-145) 03/01/25 04:34 Potassium 4.0 mmol/L (3.5-5.1) 03/01/25 04:34 Chloride 111 mmol/L (98-107) H 03/01/25 04:34 Carbon Dioxide 22 mmol/L (22-29) 03/01/25 04:34 Anion Gap 13.0 (5-19) 03/01/25 04:34 BUN 6 mg/dL (6-20) 03/01/25 04:34 Creatinine 0.7 mg/dL (0.5-0.9) 03/01/25 04:34 GFR Calculation 93.6 mL/min (90-130) 03/01/25 04:34 Glucose 97 mg/dL (65-115) 03/01/25 04:34 Calculated Osmolality 292 mOsm/kg (285-295) 03/01/25 04:34 Lactic Acid 1.5 mmol/L (0.5-2.2) 02/27/25 15:13 Calcium 7.8 mg/dL (8.5-10.5) L 03/01/25 04:34 Magnesium 1.9 mg/dL (1.7-2.3) 03/01/25 04:34 Total Bilirubin 0.8 mg/dL (0.15-1.2) 02/28/25 04:36 AST 17 U/L (0-32) 02/28/25 04:36 ALT 15 U/L (0-33) 02/28/25 04:36 Alkaline Phosphatase 54 U/L (35-105) 02/28/25 04:36 C-Reactive Protein 87.3 mg/L (0.0-4.9) H 02/27/25 15:13 Total Protein 5.7 g/dL (6.6-8.7) L 02/28/25 04:36 Albumin 3.2 g/dL (3.5-5.2) L 02/28/25 04:36 Globulin 2.5 g/dL (1.3-4.6) 02/28/25 04:36 Procalcitonin 3.71 ng/mL (0-0.5) H 03/02/25 05:09 TSH 0.86 uIU/mL (0.27-4.20) 02/27/25 15:13 HCG, Qual Negative (Negative) 02/27/25 15:02 Urine Color Dark yellow (Yellow) A 02/27/25 15:02 Urine Appearance Cloudy (CLEAR) A 02/27/25 15:02 Urine pH 7.5 (5-7) 02/27/25 15:02 Ur Specific [place] 1.018 (1.005-1.030) 02/27/25 15:02 Urine Protein 2+ (Negative) A 02/27/25 15:02 Urine Glucose (UA) Negative (Normal) 02/27/25 15:02 Urine Ketones Trace (Negative) 02/27/25 15:02 Urine Blood 2+ (Negative) A 02/27/25 15:02 Urine Nitrate Positive (Negative) A 02/27/25 15:02 Urine Bilirubin 1+ (Negative) H 02/27/25 15:02 Urine Urobilinogen 1.0 mg/dL (Negative) 02/27/25 15:02 Ur Leukocyte Esterase 1+ (Negative) A 02/27/25 15:02 Urine RBC 21-50 /hpf (0-2) H 02/27/25 15:02 Urine WBC 21-50 /hpf (0-5) H 02/27/25 15:02 Ur Squamous Epith Cells 0-5 /hpf (0-5) 02/27/25 15:02 Amorphous Sediment Not Reportable 02/27/25 15:02 Urine Bacteria None seen /hpf (NONE) 02/27/25 15:02 Hyaline Casts 6.17 /lpf 02/27/25 15:02 C. trachomatis (PCR) Not detected (Negative) 02/27/25 15:02 HIV 1&2 Ab & HIV 1 Ag Non-reactive (Non-Reactiv) 02/27/25 15:13 HIV 1&2 Antibody Non-reactive (Non-Reactiv) 02/27/25 15:13 Influenza A (PCR) Negative (Negative) 02/27/25 23:20 Influenza Type B (PCR) Negative (Negative) 02/27/25 23:20 N. gonorrhoeae (PCR) Not detected (Negative) 02/27/25 15:02 RSV (PCR) Negative (Negative) 02/27/25 23:20 SARS-CoV-2 (PCR) Negative (Negative) 02/27/25 23:20 Vitals Last Vital Signs Temp 98.4 F 03/02/25 07:41 Pulse 68 03/02/25 07:41 Resp 15 03/02/25 07:41 BP 110/65 03/02/25 07:41 Pulse Ox 98 03/02/25 07:41 O2 Del Method Room Air 03/02/25 07:41 Discharge Plan Discharge Patient Disposition: Home Condition: Stable Prescriptions: New ciprofloxacin HCl [Cipro] 500 mg tablet 500 mg PO Q12H 7 Days Qty: 14 0RF Continued clotrimazole-betamethasone 1-0.05 % cream 1 applic topical BID PRN (Reason: rash) 14 Days Qty: 45 0RF acetaminophen 500 mg Tablet 1,000 mg PO Q6H PRN (Reason: Pain) Discontinued ciprofloxacin HCl [Cipro] 250 mg tablet 250 mg PO BID 5 Days Qty: 10 0RF hydrocodone-acetaminophen 5-325 mg tablet 1 tab PO Q6H PRN (Reason: pain) 5 Days Qty: 20 0RF Discharge Order = DC NOW: Discharge Order (Routine); Ordered 03/02/25 Ordered By: Nia Liang Referrals: [facility] [Outside, Nephrology] - 4-7 days Referral Note: Dr Alvarez [place] Location [address] [facility] [place] [address] FAX: [phone] Problems: Polycystic kidney disease Mazin Ramos FNP [Primary Care Provider, [facility]] - 1-3 days Referral Note: We have notified your physician's clinic of the need for a follow-up appointment to be scheduled. If you have not heard from them within the next 2 business days, please call them directly. Discharge Diet: Regular Discharge Activity: Resume usual activity Patient Instructions: Ciprofloxacin (By mouth), Urinary Tract Infection in Women (GEN), Opioid Safety, Patient Portal & [facility] Instructions Discharge Attestations Time Spent in Discharge Care*: less than 30 min Quality Metrics Clinical Quality Measures [ No reported AMI, CVA or VTE this stay] Coding Level of Care Code Acute Code for Chg Fwd Diagnoses Gastroesophageal reflux disease, esophagitis presence not specified K21.9 Esophagitis presence: esophagitis presence not specified Polycystic kidney disease Q61.3 Renal pain N23 SIRS (systemic inflammatory response syndrome) R65.10 Acute cystitis with hematuria N30.01 Hematuria presence: with hematuria Urinary tract infection type: acute cystitis Fever R50.9
[2025-03-02 12:45] VITALS: BP 119/77; PULSE 68; RESP 16; TEMP 37.1; O2SAT 97
--- NOTE | 2025-03-02 12:46 | PC.NURSE ---
Discharge paper work discussed with patient. All questions were answered. Both IV lines were removed after patient received dose of meropenem. Patient's family member gathered all belongings. Patient ambulated out of facility with at belongings at 1245.
== END 2025-03-02 12:45 | disposition home or self-care (01) | DRG 690 ==
LOC: ER 16:55 → ER IP 17:06 → MEDSURG 18:33
PROVIDERS: Internal Medicine; Admitting Provider Internal Medicine; Emergency Provider Emergency Medicine; PCP Nurse Practitioner Family; Visit Provider Internal Medicine
DX: N30.01 Acute cystitis with hematuria (principal); Q61.2 Polycystic kidney, adult type; R65.10 Systemic inflammatory response syndrome (SIRS) of non-infectious origin without acute organ dysfunction; K21.9 Gastro-esophageal reflux disease without esophagitis; Z87.442 Personal history of urinary calculi
CPT/HCPCS: 36415; 74177; 80048; 80053; 81001; 81025; 83605; 83735; 84145; 84443; 85025; 86140; 87040; 87086; 87491; 87591; 87637; 87806; 96372; 96374; 96375; 96376; 99285; J0692; J1644; J1885; J2185; J2405; J7030; J9999

== ENCOUNTER → 2025-03-08 10:15 | Outpatient (BNVA) | payer OTHER, SELFPAY | PROVIDERS: PCP Nurse Practitioner Family; Visit Provider Nurse Practitioner Family | DX: R30.0 Dysuria (principal) | CPT/HCPCS: 81003; 87086 ==